=== PATIENT | male | born 1970 | race Caucasian/White ===

== ENCOUNTER → 2018-03-30 07:32 | Outpatient (CLI) | payer OTHER, SELFPAY ==
[2015-06-19 09:58] VITALS: BMI 22.9
[2018-03-30 09:26] LABS: Cholesterol 169 mg/dL (200); Glucose 96 mg/dL (74-106); High Density Lipoprotein 55 mg/dL; PSA,Total - Annual Screen 0.54 ng/mL (0.00-4.00); Triglycerides 99 mg/dL; Very Low Density Lipoprotein 20 mg/dL (5-40)
--- OUTSIDE RECORDS SUMMARY | 2018-05-25 11:51 | XMS RPT_ITS ---
:1970 Author Organization [facility] Care Team Providers Name Role Phone Jesus Alberto Stewart Attending Unavailable Jesus Alberto Stewart Referring Unavailable Jesus Alberto Stewart Primary Care Unavailable PROBLEMS PROBLEMS No Problem Records FoundPROCEDURES PROCEDURES No Procedure Records FoundRESULTS RESULTS LIPID PROFILE Collected: 03/30/2018 Status: F Source: LUIGI 7:38 AM [facility] REPOSITORY TYPE CODE TESTS RESULT OUT OF RANGE REFERENCE UNITS LAB L501.4900 200 mg/dL Normal CHOL 169 Result Comment: <200 mg/dL Desirable 200-240 mg/dL Borderline >240 mg/dL High Risk LAB L501.5000 mg/dL Normal TRIG 99 Result Comment: The drugs N-Acetylcysteine and Metamizole may falsely depress this assay. Serum Triglycerides Reference Interval Normal <150 mg/dL Borderline high 150 - 199 mg/dL High 200 - 499 mg/dL Very High > or = 500 mg/dL LAB L501.6400 mg/dL Normal HDL 55 Result Comment: The drugs N-Acetylcysteine and Metamizole may falsely depress this assay. Reference Range HDL <40 mg/dL Low HDL Cholesterol HDL >or= 60 mg/dL High HDL Cholesterol LAB L501.6500 0-130 mg/dL Normal LDL 94 LAB L501.6600 5-40 mg/dL Normal VLDL 20 Performed By: #### L500.4100, L501.0100, L501.9910 #### [facility] [address] [place], [address] GLUCOSE Collected: 03/30/2018 Status: F Source: HOLLOWAY 7:38 AM [facility] REPOSITORY TYPE CODE TESTS RESULT OUT OF RANGE REFERENCE UNITS LAB L501.0100 74-106 mg/dL Normal GLU 96 Result Comment: Please note revised GLUCOSE reference range effective 2017. Performed By: #### L500.4100, L501.0100, L501.9910 #### [facility] [address] [place], [address] PSA,TOTAL - ANNUAL Collected: 03/30/2018 Status: F Source: [place] SCREEN 7:38 AM [facility] REPOSITORY TYPE CODE TESTS RESULT OUT OF RANGE REFERENCE UNITS LAB L501.9910 0.00-4.00 ng/mL Normal PSA,TOT 0.54 SCREEN Result Comment: This test was performed using the TPSA assay method for the [employer] chemistry system. Values obtained with different assay methods cannot be used interchangably. When changing PSA assays in the course of monitoring a patient, additional sequential testing should be carried out to confirm baseline values. Performed By: #### L500.4100, L501.0100, L501.9910 #### [facility] [address] [place], [address] TESTOSTERONE, SERUM TOTAL Collected: 03/30/2018 Status: F Source: [place]AY 7:38 [facility] REPOSITORY TYPE CODE TESTS RESULT OUT OF REFERENCE UNITS RANGE LAB L509.3000 ng/dL Testosterone Normal 498.29 Result Comment: NORMAL REFERENCE RANGES MALE AGE <50 123.06 - 813.86 ng/dL MALE AGE >50 89.98 - 780.10 ng/dL FEMALE PREMENOPAUSE AGE 21 - 60 9.01 - 47.94 ng/dL FEMALE POSTMENOPAUSE AGE 45 - 89 <7.00 - 45.62 ng/dL REFERENCE RANGE AND METHODOLOGY CHANGED 04/21/2017 Performed By: #### L509.3000 #### [facility] [address] [place], [address] ALLERGIES ALLERGIES DATE TYPE / CODE NAME / CODE REACTION SEVERITY SOURCE 06/19/2015 Drug No Known Unknown [facility] Allergy/4160 Allergies/F00 Hospital 10162(SNOMED [id number](RXNOR Repository CT) M) ENCOUNTERS ENCOUNTERS ADMIT/DISCHARGE ACCOUNT ADMITTING ENCOUNTER LOCATION SOURCE NUMBER CLASS 03/30/2018 [id number] Amb[place] [facility] ing:LAB Repository PAYERS PAYERS ENCOUNTER GUARANTOR PAYER SUBSCRIBER SOURCE 03/30/2018 Monica De La Torre Primary Monica Thomas [id number] Insurance:MEDICAL GentryDOB: [facility] [id number] Number: Repository [id number]: [phone] [id number] [phone] () Date:[id number] [address] [place] [id number]: 03/30/2018 Secondary NOT GIVENUNK Luigi Insurance:SELF PAY [facility] Number: Effective Repository Date:2018-03-30
== END ==
PROVIDERS: Family Provider Family Medicine; PCP Family Medicine; Referring Provider Family Medicine; Visit Provider Family Medicine
DX: Z00.00 Encounter for general adult medical examination without abnormal findings (principal); R53.83 Other fatigue; Z80.42 Family history of malignant neoplasm of prostate
CPT/HCPCS: 36415; 80061; 82947; 84153; 84403; G0103

== ENCOUNTER → 2018-05-23 06:50 | Outpatient (CLI) | payer OTHER, SELFPAY ==
[2018-05-16 14:54] VITALS: BMI 22.9
--- NOTE | 2018-05-23 06:55 | CT_ITS ---
STUDY: CT ABDOMEN WITH AND WITHOUT CONTRAST REASON FOR EXAM: Male, 47 years old. Pancreatic abnormality. RADIATION DOSAGE (If Supplied By Facility): CTDIvol = ( 9.88 ) mGy, DLP = ( 629.34 ) mGycm TECHNIQUE: Transaxial images were obtained pre and post I.V. administration of 100ml ml of Isovue 300, and with oral contrast. Sagittal and coronal images were reconstructed. Individualized dose optimization techniques were used for this CT. COMPARISON: Comparison is made with prior examination dated October 06, 2011. FINDINGS: The visualized lung bases are unremarkable. The visualized portions of the heart are within normal limits. Normal liver. Normal gallbladder and extrahepatic biliary system. Normal spleen. The previously seen well-defined hypodensity in the pancreas at the junction of the body and tail portion of the pancreas has decreased in size. It presently measures 5.5 mm. Normal bilateral adrenal glands. Normal right kidney. Normal left kidney. Normal visualized stomach. Normal small intestine. Normal colon. The appendix is visualized and appears normal. Normal abdominal aorta. Normal inferior vena cava. There is borderline retroperitoneal lymphadenopathy with enlarged nodes no greater than 10mm in the short axis diameter. Normal abdominal wall. Normal osseous structures. CT/Abdomen W/WO IV Contrast IMPRESSION: The previously seen hypodensity in the pancreas has decreased in size. It presently measures 5.5 mm. Electronically Signed: Preston Cruz MD at 13:06 EST Tel [phone], Service support ,
--- OUTSIDE RECORDS SUMMARY | 2018-07-25 14:29 | XMS RPT_ITS ---
:1970 Author Organization OHIP Care Team Providers Name Role Phone Toribio Barrientos Attending Unavailable Jesus Alberto Stewart Referring Unavailable Toribio Barrientos Attending Unavailable Toribio Barrientos Referring Unavailable Jesus Alberto Stewart Primary Care Unavailable Jesus Alberto Stewart Attending Unavailable Jesus Alberto Stewart Referring Unavailable Jesus Alberto Stewart Primary Care Unavailable PROBLEMS PROBLEMS DATE TYPE CONDITION / CODE ATTENDING STATUS SOURCE 05/16/2018 Unknown K21.9 - Toribio Barrientos Active [place] [facility] reflux disease [facility] without Repository esophagitis / K21.9(ICD-10) 05/16/2018 Unknown Z12.11 - Toribio Barrientos Active [place] Encounter for Community screening for Hospital malignant Repository neoplasm of colon / Z12.11(ICD-10) 05/16/2018 Unknown R10.9 - Toribio Barrientos Active [place] Unspecified Community abdominal pain / Hospital R10.9(ICD-10) Repository 05/16/2018 Unknown Z12.10 - Toribio Barrientos Active [place] Encounter for Community screening for Hospital malignant Repository neoplasm of intestinal tract, unspecified / Z12.10(ICD-10) 05/16/2018 Unknown K86.2 - Cyst of [place], Toribio Active [place] pancreas / Community K86.2(ICD-10) Hospital Repository PROCEDURES PROCEDURES No Procedure Records FoundRESULTS RESULTS ABDOMEN W/WO IV Observed: 05/23/2018 Status: F Source: [place] CONTRAST 6:55 AM [facility] REPOSITORY [facility] Imaging Services [address] [address] Abdomen W/WO IV Contrast MR#: [id number] Acct: [id number] Name: MONICA YORK Rep #: [id number] : 1970 M 47 From: Preston Cruz MD PCP: Jesus Alberto Stewart DO Status: REG CLI Study: Abdomen W/WO IV Contrast Date of Exam: 05/23/18 Exam# [id number] Ordering Dr: Toribio Barrientos MD STUDY: CT ABDOMEN WITH AND WITHOUT CONTRAST REASON FOR EXAM: Male, 47 years old. Pancreatic abnormality. RADIATION DOSAGE (If Supplied By Facility): CTDIvol = ( 9.88 ) mGy, DLP = ( 629.34 ) mGycm TECHNIQUE: Transaxial images were obtained pre and post I.V. administration of 100ml ml of Isovue 300, and with oral contrast. Sagittal and coronal images were reconstructed. Individualized dose optimization techniques were used for this CT. COMPARISON: Comparison is made with prior examination dated October 06, 2011. FINDINGS: The visualized lung bases are unremarkable. The visualized portions of the heart are within normal limits. Normal liver. Normal gallbladder and extrahepatic biliary system. Normal spleen. The previously seen well-defined hypodensity in the pancreas at the junction of the body and tail portion of the pancreas has decreased in size. It presently measures 5.5 mm. Normal bilateral adrenal glands. Normal right kidney. Normal left kidney. Normal visualized stomach. Normal small intestine. Normal colon. The appendix is visualized and appears normal. Normal abdominal aorta. Normal inferior vena cava. There is borderline retroperitoneal lymphadenopathy with enlarged nodes no greater than 10mm in the short axis diameter. Normal abdominal wall. Normal osseous structures. CT/Abdomen W/WO IV Contrast IMPRESSION: The previously seen hypodensity in the pancreas has decreased in size. It presently measures 5.5 mm. Electronically Signed: Preston Cruz MD at 13:06 EST Tel [phone], Service support , CC: Jesus Alberto Stewart DO; Toribio Barrientos MD Truck Mechanic: Signed SURGERY VISIT REPORT Observed: 05/16/2018 Status: F Source: [place] 3:06 PM [facility] REPOSITORY [facility] [address] [place] [address]. 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: No Is patient in pain?: Yes (Left face/ neck) Pain scale (1-10): 2 Allergies No Known Allergies Allergy (Verified 05/16/18 14:52) Medications NK 05/16/18 [History Confirmed 05/16/18] PFSH Medical History Difficulty swallowing (Acute) Fatigue (Acute) Acid reflux (Acute) Surgical History History of esophagogastroduodenoscopy (EGD) (Acute) History of left knee surgery (Acute) Hx of right inguinal hernia repair (Acute) Hx of tonsillectomy (Acute) Family History Father Cancer Prostate Social History Smoking Status: Never smoker second hand exposure: No alcohol intake: current alcohol intake frequency: holidays/special occasions only substance use type: does not use caffeine: Yes what type of physical activity do you participate in: walking frequency: 5-6 times per week HPI HPI HPI: MONICA YORK, is a 47 M who presents to the office today for surgical consultation mostly regarding multiple year history of gastroesophageal reflux disease, anterior neck throat pressure discomfort, several year history of left neck ear pain. He also has need for screening colonoscopy. He has no family history of colon cancer. He has been seen recently by Dr. Nic Oscar ear nose and throat because of left ear fullness pain left neck pain left mandible mass. Possible adenopathy left neck. He states that approximately 2 years ago he had an MRI that was not remarkable. No etiology to that can be determined. The patient is referred by his primary care physician Dr. Jesus Alberto Grossman however for the endoscopic procedures. The patient has been a lifelong tobacco chewer. He is trying to cut down. Further evidence reveals that March 2013 at [facility] he had a pancreatic cyst aspirated under ultrasound guidance. That was felt to be normal on cytology but follow-up imaging at 1 year was recommended. He did not pursue that. He otherwise feels that he is in good health. He has not had a acute change of bowel habits. He does however occasionally have severe rectal pain with spasms that almost are so severe it makes him pass out. I previously had assisted him with a consultation in the year 2013 where his symptoms sounded like an anal fissure and he was treated conservatively. For multiple years he has had reflux symptoms. It is worse when he play sports like softball and it is worse when he increases his chewing behavior. He denies previous history of Agustin's. He has intermittently utilized snqo-gcw-uuqyfjv omeprazole and more recently was prescribed prescription strength medication but felt that that caused him to have a dry mouth so he cease that medication immediately. He now takes tcns-gpa-avxrnse medicine like omeprazole as needed ROS General General: Yes fatigue; no weight change, appetite, colon cancer, breast cancer or weakness HEENT HEENT: Yes difficulty swallowing and swollen glands; no eye injury, eye surgery or hoarseness Endo Endocrine: No thyroid disease, diabetes mellitus, thyroid cancer, Hair loss, heat intolerance or cold intolerance Skin Skin: No rash or changing moles Musc Musculoskeletal: No back problems, arthritis, rheumatoid arthritis, gout or joint pain Cardio Cardiovascular: No murmur, pacemaker, heart disease, atrial fibrillation, high blood pressure, heart attack, heart stent, palpitations, shortness of breat with exertion or chest pain Psych Psychiatric: No depression, anxiety or hearing voices Resp Respiratory: No shortness of breath, No sleep apnea, No cough, No COPD, No asthma, No emphysema, No wheezing Gastro Gastrointestinal: Yes acid reflux, No abdominal pain, No nausea or vomiting, No diarrhea, No constipation, No blood in stool, No hemorrhoids, No ulcers, No gallbladder problem, No black,tarry stools Juan Hematologic: No blood thinners, No blood disorders, No bleeding, No anemia, No blood clots Neuro Neurologic: No system reviewed and no additional complaints, except as docu, No as per HPI, No abnormal walking, No abnormal hearing, No abnormal movements, No abnormal speech, No behavioral changes, No burning sensations, No confusion, No seizure-like activity, No unsteadiness, No dizziness, No localized weakness, No frequent falls, No headache(s), No lack of coordination, No loss of vision, No memory loss, No numbness, No other visual disturbances, No radiating pain, No restless legs, No sensory deficit, No fainting, No tingling, No tremor(s), No weakness, No other Exam Const General: cooperative, healthy appearing, no acute distress Nutritional Appearance: average body habitus Orientation: alert, awake, oriented x3 Neck Neck mass: No Thyroid: thyroid normal Carotids: normal carotid upstroke Lymphatic: no lymphadenopathy noted Other: The left parotid and cervical neck is unremarkable for adenopathy. Left mid neck has slight tenderness but I cannot correlate that with a mass. I do not detect any supraclavicular adenopathy. Chest Chest palpation AND inspection: normal inspection of the chest Resp Effort AND Inspection: normal respiratory effort Auscultation: clear to auscultation bilaterally Cardio Rate: regular rate Rhythm: regular rhythm Heart Sounds: no murmurs GI Palpation: soft, no hepatosplenomegaly Auscultation: normal bowel sounds Skin General: no rashes or lesions noted Neuro General: alert, oriented x3 Extrem General: no calf tenderness bilaterally Psych Affect: normal affect Assessment AND Plan Problems 1. Gastroesophageal reflux disease, esophagitis presence not specified K21.9 2. Screening for intestinal cancer Z12.10 3. Pancreatic cyst K86.2 Plan 47-year-old gentleman. Next week he will be 48. He previously describes endoscopic ultrasound aspiration of the pancreatic cyst in 2013 for which he was supposed to have a follow-up CTA or MRI at 1 year. We will assist him with pursuing a CT scan of the abdomen with close inspection of the pancreas looking for presence of cyst. He will be age 48 next week. I recommend to him a screening colonoscopy with possible biopsy or polypectomy is indicated. He is aware of the technique, benefits, risks, alternatives. We will schedule and proceed at his discretion. He has symptoms very much consistent with gastroesophageal reflux disease. He is a chronic tobacco chewer. The left neck pain is indeterminate and I have cautioned him that I likely do not have an answer to that. I am offering him a esophagogastroduodenoscopy with possible biopsy or polypectomy is indicated. Regarding his left ear neck issues he might consider referral to a tertiary center if his symptoms persist. I very much appreciate the kind opportunity of assisting with his surgical care CC: Dr. Jesus Alberto Barrientos M.D., F.A.C.S. Orders Orders: Coding Level of Care Code Detailed, Low Diagnoses Gastroesophageal reflux disease, esophagitis presence not specified K21.9 Esophagitis presence: esophagitis presence not specified Screening for intestinal cancer Z12.10 Pancreatic cyst K86.2 05/16/18 1506 <Electronically signed by Toribio Barrientos MD> Date Toribio Barrientos MD Cosigner Signature: Date (if applicable) CC: Jesus Alberto Stewart DO LIPID PROFILE Collected: 03/30/2018 Status: F Source: [facility] 7:38 AM [facility] REPOSITORY TYPE CODE TESTS RESULT OUT [...] Performed By: #### L500.4100, L501.0100, L501.9910 #### [facility] [address] [place], [address] GLUCOSE Collected: 03/30/2018 Status: F Source: [place] 7:38 AM [facility] REPOSITORY TYPE CODE TESTS RESULT OUT OF RANGE REFERENCE UNITS LAB L501.0100 74-106 mg/dL Normal GLU 96 Result Comment: Please note revised GLUCOSE reference range effective 2017. Performed By: #### L500.4100, L501.0100, L501.9910 #### [facility] [address] [place], [address] PSA,TOTAL - ANNUAL Collected: 03/30/2018 Status: F Source: [facility] 7:38 AM [facility] REPOSITORY TYPE CODE TESTS RESULT OUT OF RANGE REFERENCE UNITS LAB L501.9910 0.00-4.00 ng/mL Normal PSA,TOT 0.54 SCREEN Result Comment: This test was performed using the TPSA assay method for the [employer]Suite chemistry system. Values obtained with different assay methods cannot be used interchangably. When changing PSA assays in the course of monitoring a patient, additional sequential testing should be carried out to confirm baseline values. Performed By: #### L500.4100, L501.0100, L501.9910 #### [facility] [address] [place], [place], [address] TESTOSTERONE, SERUM TOTAL Collected: 03/30/2018 Status: F Source: [place] 7:38 AM [facility] REPOSITORY TYPE CODE TESTS RESULT OUT [...] CHANGED 04/21/2017 Performed By: #### L509.3000 #### [facility] [address] [place], [address] ALLERGIES ALLERGIES DATE TYPE / CODE NAME / CODE REACTION SEVERITY SOURCE 05/16/2018 Drug No Known Unknown [facility] Allergy/4160 Allergies/F00 Hospital 40536(SNOMED [id number](RXNOR Repository CT) M) ENCOUNTERS ENCOUNTERS ADMIT/DISCHARGE ACCOUNT ADMITTING ENCOUNTER LOCATION SOURCE NUMBER CLASS 05/23/2018 [id number] Amb[place] [facility] ing:CT Repository 05/16/2018/ [id number] Ambulatory BMSBuilding:B [place] [facility] [place] 03/30/2018 [id number] Ambulatory [place] [facility] ing:LAB Repository PAYERS PAYERS ENCOUNTER GUARANTOR PAYER SUBSCRIBER SOURCE 05/23/2018 MONICA De [place] Torre Primary MONICA De La Torre [place] [id number] Insurance:MEDICAL GENTRYDOB: [facility] [id number] Number: Repository [id number]: [phone] [id number] [phone] (HP) Date:3651-11-22HH [address] [place] [id number]: 05/23/2018 Secondary NOT GIVENUNK [place] Insurance:SELF PAY [facility] Number: Effective Repository Date:2018-05-16 05/16/2018 MONICA De La Torre Primary MONICA A [place] [id number] Insurance:MEDICAL GENTRYDOB: [facility] [id number] Number: Repository [id number]: 330 [id number] [phone] () Date:9224-33-18CO [address] [address]HL: 05/16/2018 Secondary NOT GIVENUNK [place] Insurance:SELF PAY [facility] Number: Effective Repository Date:2018-05-13 03/30/2018 Monica A Primary Monica A [place] [id number] Insurance:MEDICAL GentryDOB: [facility] [id number] Number: Repository [id number]: [phone]) [id number] [phone] () Date:8928-00-[address] [address]EX: 03/30/2018 Secondary NOT GIVENUNK [place] Insurance:SELF PAY [facility] Number: Effective Repository Date:2018-03-30
== END ==
PROVIDERS: Family Provider Family Medicine; PCP Family Medicine; Referring Provider Surgery; Visit Provider Surgery
DX: R10.9 Unspecified abdominal pain (principal)
CPT/HCPCS: 74170; Q9967

== ENCOUNTER 2018-06-06 05:27 | Day surgery (SDC) | payer OTHER, SELFPAY ==
[2018-05-16 14:54] VITALS: BMI 22.9
[2018-06-06 05:51] VITALS: BP 115/83; PULSE 66; RESP 16; TEMP 37.1; O2SAT 99; BMI 25.3
--- NOTE | 2018-06-06 06:30 | EGD_PTH ---
PATIENT: MONICA YORK LOC: EN U#:[id number] AGE/SX: 48/M ROOM: RE06/06/[address]: Dr. Toribio Barrientos MD : 1970 BED: DIS: 06/06/2018 SPEC #: [id number] RECD: 06/06/18 09:22 STATUS: PACHECO NEPTALI #: [id number] DEMARIO: 06/06/18 06:[address]: Toribio Barrientos DEPT: SURGICAL PATHOLOGY RECD BY: Solomon Browning ENTERED: 06/06/18 13:11 SP TYPE: EGD BIOPSY OTHR DR: Dr. Jesus Alberto Stewart DO Tissues: A - Gastric mucous membrane B - Gastric mucous membrane C - Esophageal mucous membrane Procedures: Special Stain Group II Surgery Specimen Level IV Alcian Blue/PAS (control) HEADER OPERATION: Colonoscopy, EGD ([facility]) PRE-OP DIAGNOSIS: GERD, screening TISSUE SUBMITTED: A - Antral biopsy for H. pylori and pathology, B - GE junction biopsies, C - Proximal esophageal biopsies MICROSCOPIC DIAGNOSIS A. Gastric antrum, biopsy: Mild chronic gastritis. B. Gastroesophageal junction, biopsy: Gastroesophageal junctional mucosa with chronic inflammation. No evidence of intestinal metaplasia. See comment.. C. Proximal esophagus, biopsy: Consistent with changes of reflux. AM:martinez 06/07/18 COMMENT B. Alcian blue/PAS stain with matched control supports the above diagnosis. MICROSCOPIC DESCRIPTION Slides are reviewed. GROSS DESCRIPTION A - Received in fixative is one container labeled with the patient's name and designated gastric antrum biopsy. The specimen consists of one irregular fragment of light lopez soft tissue that measures 0.5 x 0.2 x 0.1 cm. The specimen is totally submitted in one cassette. B - Received in fixative is one container labeled with the patient's name and designated GE junction. The specimen consists of multiple irregular fragments of light lopez soft tissue that in aggregate measure 1.0 x 0.6 x 0.1 cm. The specimen is totally submitted in one cassette. C - Received in fixative is one container labeled with the patient's name and designated proximal esophageal biopsy. The specimen consists of multiple irregular fragments of light lopez soft tissue that in aggregate measure 1.2 x 0.6 x 0.1 cm. The specimen is totally submitted in one cassette. / AM:martinez 06/06/18 TC:3 CPT: 14794 x3, 79804
--- NOTE | 2018-06-06 06:30 | IMM_PTH ---
PATIENT: MONICA YORK LOC: EN U#:[id number] AGE/SX: 48/M ROOM: RE06/06/[address]: Dr. Toribio Barrientos MD : 1970 BED: DIS: 06/06/2018 SPEC #: [id number] RECD: 06/06/18 10:57 STATUS: PACHECO REHiram #: [id number] DEMARIO: 06/06/18 06:[address]: Toribio Barrientos DEPT: IMMUNOHISTOCHEMISTRY RECD BY: Gladys Robles ENTERED: 06/06/18 10:57 SP TYPE: IMMUNO OTHR DR: Dr. Jesus Alberto Stewart DO Tissues: A - Stomach, NOS Procedures: H Pylori (initial) PHYSICIAN & INSTITUTION [place] [address] SPECIMEN INFORMATION: Tissue Source: Colonoscopy, EGD Clinical Info: GERD, screening Specimen Number: [id number] CPT code: 81393 METHODOLOGY: Deparaffinized sections of prefer/formalin-fixed tissue or PAP/DQ stained slides are incubated with monoclonal/polyclonal antibodies/oligonucleotide probes. Localization is made via biotin free immunoperoxidase method. Appropriate controls are performed and reacted as expected. Results on target cell population are indicated in the following table: RESULTS: ANTIBODY / CLONE RESULT Block A H Pylori (polyclonal) negative These tests were developed and their performance characteristics determined by [facility]. They may not have been cleared or approved by the U.S. Food and Drug Administration. The FDA has determined that such clearance or approval is not necessary. INTERPRETATION: A. Antral biopsy: Negative for Helicobacter pylori organisms. AM:martinez 06/07/18
[2018-06-06 07:07] VITALS: BP 105/57; BP 115/83; PULSE 57; RESP 16; TEMP 35.9; O2SAT 98
--- NOTE | 2018-06-06 07:07 | OP.ENDO_ITS ---
Patient Name: Jonah Yousif Procedure Date: 06/06/2018 6:02 AM Date of : 1970 Age: 48 Procedure: Upper GI endoscopy Indications: Suspected gastro-esophageal reflux disease Providers: Toribio Barrientos MD Referring MD: Toribio Barrientos MD Medicines: See the Anesthesia note for documentation of the administered medications Complications: No immediate complications. Procedure: Pre-Anesthesia Assessment: - Prior to the procedure, a History and Physical was performed, and patient medications and allergies were reviewed. The patient's tolerance of previous anesthesia was also reviewed. The risks and benefits of the procedure and the sedation options and risks were discussed with the patient. All questions were answered, and informed consent was obtained. Prior Anticoagulants: The patient has taken no previous anticoagulant or antiplatelet agents. ASA Grade Assessment: II - A patient with mild systemic disease. After reviewing the risks and benefits, the patient was deemed in satisfactory condition to undergo the procedure. After obtaining informed consent, the endoscope was passed under direct vision. Throughout the procedure, the patient's blood pressure, pulse, and oxygen saturations were monitored continuously. The gastroscope was introduced through the mouth, and advanced to the second part of duodenum. The upper GI endoscopy was accomplished without difficulty. The patient tolerated the procedure well. Scope In: 6:31:20 AM Scope Out: 6:42:46 AM Total Procedure Duration Time 0 hours 11 minutes 26 seconds Findings: Esophagitis was found. Biopsies were taken with a cold forceps for histology. A 1 cm hiatal hernia was present. Biopsies were taken with a cold forceps for histology. The entire examined stomach was normal. Biopsies were taken with a cold forceps for histology. The examined duodenum was normal. Impression: - Reflux esophagitis. Rule out Agustin's esophagus. Large area in the very proximal esophagus. See photos. Multiple biopsies. - 1 cm hiatal hernia. Biopsied. Findings suggest reflux esophagitis - Normal stomach. Biopsied. - Normal examined duodenum. Recommendation: - Discharge patient to home. - Resume previous diet. - Use Prilosec (omeprazole) 40 mg PO daily. - Continue present medications. - Return to my office in 1 week. Procedure Code(s): --- Professional --- 79856, Esophagogastroduodenoscopy, flexible, transoral; with biopsy, single or multiple Diagnosis Code(s): --- Professional --- K21.0, Gastro-esophageal reflux disease with esophagitis K44.9, Diaphragmatic hernia without obstruction or gangrene CPT copyright 2017 [employer]. All rights reserved. The codes documented in this report are preliminary and upon real estate lawyer review may be revised to meet current compliance requirements. Toribio Barrientos MD 06/06/2018 7:07:02 AM This report has been signed electronically. Number of Addenda: 0 Note Initiated On: 06/06/2018 6:02 AM
--- NOTE | 2018-06-06 07:09 | OP.ENDO_ITS ---
Patient Name: Jonah Yousif Procedure Date: 06/06/2018 6:43 AM Date of : 1970 Age: 48 Procedure: Colonoscopy Indications: Screening for colorectal malignant neoplasm Providers: Toribio Barrientos MD Referring MD: Toribio Barrientos MD Medicines: See the Anesthesia note for documentation of the administered medications Patient Profile: Last Colonoscopy: none. The patient's first colonoscopy is today. Complications: No immediate complications. Procedure: Pre-Anesthesia Assessment: - Prior to the procedure, a History and Physical was performed, and patient medications and allergies were reviewed. The patient's tolerance of previous anesthesia was also reviewed. The risks and benefits of the procedure and the sedation options and risks were discussed with the patient. All questions were answered, and informed consent was obtained. Prior Anticoagulants: The patient has taken no previous anticoagulant or antiplatelet agents. ASA Grade Assessment: II - A patient with mild systemic disease. After reviewing the risks and benefits, the patient was deemed in satisfactory condition to undergo the procedure. After I obtained informed consent, the scope was passed under direct vision. Throughout the procedure, the patient's blood pressure, pulse, and oxygen saturations were monitored continuously. The colonoscope was introduced through the anus and advanced to the cecum, identified by appendiceal orifice and ileocecal valve. The colonoscopy was performed without difficulty. The patient tolerated the procedure well. The quality of the bowel preparation was good. The ileocecal valve and the appendiceal orifice were photographed. Scope In: 6:45:08 AM Scope Withdrawal Time 0 hours 9 minutes 21 seconds Scope Out: 7:00:38 AM Total Procedure Duration Time 0 hours 15 minutes 30 seconds Findings: The digital rectal exam findings include non-thrombosed external hemorrhoids, non-thrombosed internal hemorrhoids and internal hemorrhoids that prolapse with straining, but spontaneously regress to the resting position (Grade II). Pertinent negatives include normal prostate (size, shape, and consistency). The colon (entire examined portion) appeared normal. Impression: - Non-thrombosed external hemorrhoids, non-thrombosed internal hemorrhoids and internal hemorrhoids that prolapse with straining, but spontaneously regress to the resting position (Grade II) found on digital rectal exam. - The entire examined colon is normal. - No specimens collected. Recommendation: - Discharge patient to home. - Resume previous diet. - Continue present medications. - Repeat colonoscopy in 10 years for screening purposes. Procedure Code(s): --- Professional --- 24598, Colonoscopy, flexible; diagnostic, including collection of specimen(s) by brushing or washing, when performed (separate procedure) Diagnosis Code(s): --- Professional --- Z12.11, Encounter for screening for malignant neoplasm of colon K64.1, Second degree hemorrhoids K64.4, Residual hemorrhoidal skin tags CPT copyright 2017 [employer]. All rights reserved. The codes documented in this report are preliminary and upon steam box hand review may be revised to meet current compliance requirements. Toribio Barrientos MD 06/06/2018 7:09:01 AM This report has been signed electronically. Number of Addenda: 0 Note Initiated On: 06/06/2018 6:43 AM
[2018-06-06 07:10] VITALS: BP 101/61; BP 115/83; PULSE 55; RESP 16; O2SAT 98
[2018-06-06 07:15] VITALS: BP 115/83; BP 116/66; PULSE 53; RESP 16; O2SAT 100
[2018-06-06 07:20] VITALS: BP 107/65; BP 115/83; PULSE 54; RESP 16; TEMP 36.1; O2SAT 100
[2018-06-06 07:28] VITALS: BP 115/83
== END 2018-06-06 07:48 | disposition home or self-care (01) ==
LOC: EN 05:27 → AC 05:28
PROVIDERS: Family Provider Family Medicine; PCP Family Medicine; Referring Provider Surgery; Visit Provider Surgery
PROC: 0DJD8ZZ Inspection of Lower Intestinal Tract, Via Natural or Artificial Opening Endoscopic (ICD-10-PCS; CPT 45378; principal; 2018-06-06 06:25)
DX: Z12.11 Encounter for screening for malignant neoplasm of colon (principal); K29.50 Unspecified chronic gastritis without bleeding; K21.0 Gastro-esophageal reflux disease with esophagitis; K44.9 Diaphragmatic hernia without obstruction or gangrene; K64.1 Second degree hemorrhoids; K64.4 Residual hemorrhoidal skin tags; K86.2 Cyst of pancreas; F17.220 Nicotine dependence, chewing tobacco, uncomplicated; Z86.718 Personal history of other venous thrombosis and embolism
CPT/HCPCS: 43239; 45378; 88305; 88313; 88342; J7120

== ENCOUNTER → 2018-06-10 08:07 | Outpatient (CLI) | payer OTHER, SELFPAY ==
[2018-05-16 14:54] VITALS: BMI 22.9
[2018-06-06 05:51] VITALS: BMI 25.3
--- NOTE | 2018-06-10 08:11 | CT_ITS ---
STUDY: CT SOFT TISSUE NECK WITH CONTRAST REASON FOR EXAM: Male, 48 years old. Swelling of the left side of the neck for 3 months RADIATION DOSAGE (If Supplied By Facility): CTDIvol = ( 20.85 ) mGy, DLP = ( 656.15 ) mGycm TECHNIQUE: The patient was scanned in a multi-detector CT scanner. High resolution transaxial imaging was performed following intravenous administration of 75CC ml of Isovue 300 contrast material. Sagittal and coronal images were reconstructed. Individualized dose optimization techniques were used for this CT. COMPARISON: 01/21/2015 FINDINGS: Normal bilateral parotid glands. Normal bilateral sustainability director spaces. Normal bilateral parapharyngeal spaces. Normal bilateral carotid spaces. Normal bilateral sublingual and submandibular glands and spaces. Normal visualized nasopharynx. Normal retropharyngeal space. Normal perivertebral space. Normal visualized bilateral faucial tonsils. The visualized tongue, tongue base and oropharynx are normal. There are minimally enlarged lymph nodes of the neck, with preservation of normal torres architecture, consistent with a reactive lymph hyperplasia. No dominant torres mass. There is no demonstrated solid or cystic mass lesion. There is no abnormal contrast enhancement. Normal epiglottis, bilateral vallecula and hypopharynx. The pre-epiglottic and paraglottic adipose spaces are normal. Normal visualized bilateral piriform sinuses, aryepiglottic folds, vocal cords, and arytenoid-cricoid articulations. Normal subglottic trachea. Normal bilateral lobes of the thyroid gland. Normal visualized pulmonary apices. There is mucosal inflammatory disease of the left more than right maxillary sinus consistent with chronic sinusitis. Normal visualized cervical spine. CT/Soft Tissue Neck WITH Contrast IMPRESSION: 1. No solid or cystic mass. 2. Similar appearing reactive lymph nodes of the neck (since 2014). 3. Mild maxillary sinusitis but no air-fluid levels (chronic). Electronically Signed: Shaka Vela MD at 22:31 EST , Service support ,
== END ==
PROVIDERS: Family Provider Family Medicine; PCP Family Medicine; Referring Provider Otolaryngology; Visit Provider Otolaryngology
DX: R22.1 Localized swelling, mass and lump, neck (principal)
CPT/HCPCS: 70491; Q9967

== ENCOUNTER → 2019-03-29 11:55 | Outpatient (CLI) | payer OTHER, SELFPAY ==
[2018-06-13 12:36] VITALS: BMI 25.3
--- NOTE | 2019-03-29 12:02 | RAD_ITS ---
STUDY: X-RAY - CERVICAL SPINE REASON FOR EXAM: Male, 48 years old. TECHNIQUE: view(s) of the cervical spine were obtained. COMPARISON: None FINDINGS: Normal anterior atlantoaxial articulation. Normal odontoid process. Straightened cervical lordosis. Normal vertebral bodies and endplates. Normal disc space heights. Normal visualized intervertebral neuroforamina. The soft tissue structures are unremarkable. RAD/Cerv Spine 4 or 5 Views IMPRESSION: Normal x-ray examination of the visualized cervical spine. Electronically Signed: Ольга Crooks, at 15:40 EST Tel , Service support ,
== END ==
PROVIDERS: Family Provider Family Medicine; PCP Family Medicine; Referring Provider Anesthesiology Pain Medicine; Visit Provider Anesthesiology Pain Medicine
DX: M54.2 Cervicalgia (principal)
CPT/HCPCS: 72050

== ENCOUNTER 2019-06-23 08:01 | Day surgery (SDC) | payer OTHER, SELFPAY ==
[2018-06-13 12:36] VITALS: BMI 25.3
--- NOTE | 2019-06-23 08:36 | EKG12_ITS ---
Test Reason : PREOP Blood Pressure : / mmHG Vent. Rate : 049 BPM Atrial Rate : 049 BPM P-R Int : 158 ms QRS Dur : 086 ms QT Int : 468 ms P-R-T Axes : 048 -15 -24 degrees QTc Int : 422 ms Sinus bradycardia Otherwise normal ECG No previous ECGs available Confirmed by CHRISTINA CERNA, CASEY ([id number]), web editor RUDDY CANTU ([id number]) on 06/27/2019 1:30:25 PM Referred By: Nomi Flores Confirmed By:ERLINDA VASQUEZ MD
[2019-06-23 08:48] VITALS: BP 145/79; PULSE 54; RESP 18; TEMP 36.8; O2SAT 98; BMI 28.2
[2019-06-23 08:54] LABS: Hematocrit 39.3 % (40-54); Hemoglobin 12.9 g/dL (13.0-16.5); Mean Corp Hgb Conc 32.8 g/dL (32-36); Mean Corpuscular Hgb 27.7 pg (27.0-32.0); Mean Corpuscular Volume 84.5 fL (80-94); Mean Platelet Vol. 10.5 fl (6.2-12.0); Platelet Count 199 K/mm3 (150-450); RBC Distribution Width CV 12.3 % (11.6-14.6); RBC Distribution Width SD 37.6 fl (35.1-43.9); Red Blood Count 4.65 M/mm3 (4.6-6.2); White Blood Count 4.3 K/mm3 (4.4-11.0)
[2019-06-23] MEDS: Lactated Ringers 1,000 ML 100 ML IV (09:03)
--- NOTE | 2019-06-23 09:40 | SEP_PTH ---
PATIENT: MONICA YORK [place] [facility] [place] U[place][id number] AGE/SX: 49/M ROOM: RE06/23/[address]: Dr. Nomi Flores MD : 1970 BED: DIS: 06/23/2019 SPEC #: [id number] RECD: 06/23/19 13:11 STATUS: PACHECO REHiram #: [id number] DEMARIO: 06/23/19 09:[address]: Nomi Flores DEPT: SURGICAL PATHOLOGY RECD BY: Solomon Browning ENTERED: 06/23/19 13:19 SP TYPE: SEPTUM OTHR DR: No Primary Care Phys Tissues: A - Ethmoid sinus, NOS B - Ethmoid sinus, NOS C - Nasal septum, NOS Procedures: Decalcification bone/plaque Surgery Specimen Level III HEADER OPERATION: Septoplasty PRE-OP DIAGNOSIS: Deviated nasal septum; chronic maxillary sinusitis TISSUE SUBMITTED: A - Right sinus contents, B - Left sinus contents, C - Septum contents MICROSCOPIC DIAGNOSIS A. Right sinus contents, biopsy: Consistent with chronic sinusitis. Minute fragments of bone with no pathologic change. B. Left sinus contents, biopsy: Consistent with chronic sinusitis. Minute fragments of bone with no pathologic change. C. Nasal septum, septoplasty: Fragments of hyaline cartilage and bone with reparative and reactive change (clinically deviated septum). AM:martinez 06/28/19 MICROSCOPIC DESCRIPTION Slides are reviewed. GROSS DESCRIPTION A - Received in fixative is one container labeled with the patient's name and designated right sinus contents. The specimen consists of multiple fragments of hemorrhagic soft tissue that in aggregate measure 4 x 3 x 1 cm. Resource Technician tissue is submitted in two cassettes. B - Received in fixative is one container labeled with the patient's name and designated left sinus contents. The specimen consists of multiple fragments of lopez-pink soft tissue that in aggregate measure 2 x 0.5 x 0.1 cm. The entire specimen is submitted in one cassette. C - Received in fixative is one container labeled with the patient's name and designated septum contents. The specimen consists of multiple fragments of cartilage and bone that in aggregate measure 4 x 4 x 0.5 cm. Resource Technician tissue is submitted in one cassette after decalcification. / SJ:martinez 06/23/19 TC:3 CPT: 85117 x3, 61494
[2019-06-23] MEDS: Oxymetazoline 0.05% 1 SPRAY SPRAY.BTL 15 SPRAY (11:00)
[2019-06-23] MEDS: Lidocaine 4% 50 ML Bottle (11:00)
[2019-06-23] MEDS: Bacitracin 500 UNITS/GM PACKET (11:00)
--- NOTE | 2019-06-23 11:03 | OP.PCM_ITS ---
Problem List (1) Deviated nasal septum Status: Acute (2) Chronic maxillary sinusitis Status: Chronic Report of Operation Date of Procedure: 06/23/19 Pre-Operative Diagnosis: Chronic bilateral maxillary sinusitis, deviated nasal septum Post-Operative Diagnosis: Same Surgery/Procedure Performed:: Septoplasty, bilateral endoscopic maxillary antrostomies Description of Surgical Findings:: Acosta is a 49-year-old male with complaints of chronic sinusitis. On examination he has significant deviation of the nasal septum CT scan confirmed bilateral m axillary sinusitis. Given the failure to resolve with appropriate medical therapy surgical treatment was offered and he was eager to proceed. The risks, alternatives, potential complications, and benefits were discussed at length and any questions answered to the patient and/or caregiver's satisfaction. Witnessed informed consent was obtained in the office, and the patient and/or caregiver was agreeable to proceed. Procedure went as follows: The patient was identified in the preoperative holding and brought to the operating room, was placed under general anesthesia and intubated. When appropriate anesthesia was obtained, pledgets soaked in a 50-50 mixture of oxymetazoline and 4% topical lidocaine were placed to decongest the nasal mucosa. The nasal septum was then injected beginning on the left side with 1% lidocaine with 100,000 epinephrine for a total of 5 mL. The pledgets were then removed and the left nasal cavity examined. There was noted to be significant nasal septal deviation to the [right]. Using a 15 blade scalpel, a hemitransfixion incision was then made on the left side and using the [place] elevator a subperichondrial/periosteal flap was elevated. The septum was then transected at the bony cartilaginous junction and a similar flap raised on the contralateral side. Using a Roshni forceps, the septum was then sharply transected superiorly and the deviated portions removed with a Gricelda forceps. Any inferior bony spur was then removed with a chisel allowing for midline placement of the nasal septum. The hemitransfixion incision was then c losed with interrupted 4-0 chromic gut suture followed by a 4-0 plain quilting suture to reapproximate the mucosal flaps. Attention was then turned to the maxillary antrostomies. The insertion of the middle turbinate and uncinate process was then injected with 1% lidocaine with 100,000 epinephrine for a total of 2 mL, and a similar injection was then carried on the contralateral side. Upon returning to the left side, the middle turbinate was medialized with a Cruz elevator. This allowed examination of the maxillary sinus ostia which was then probed with a double ball seeker. There is noted to be an accessory ostia inferiorly and care was used to joined with with the existing natural ostia. The uncinate process was then outfractured with a J curette and transected with a backbiting forceps. This was then removed with the microdebrider creating a wide maxillary antrostomy. Similar procedure and findings were then carried out. Thorpe splints coated with Bacitracin ointment were then applied to each nasal cavity and secured at the columella with a single 3-0 Prolene suture. An NG tube was then placed to decompress the stomach and the patient returned to anesthesia, revived and extubated having tolerated the procedure well. Type of Anesthesia:: General Anesthesiologist: Nomi Baltazar Special Medications: none Specimen's removed: nasal septal and sinus contents Drains: none Estimated Blood Loss (mL): 10 mL Fluids Replaced: 400 mL Grafts/Implants Used: Thorpe splints - Complications none - Admit VTE Documentation VTE Present on Admission: No VTE Mechan Device Prophylaxis: SCD's VTE Pharm Prophylaxis ordered?: No
--- NOTE | 2019-06-23 11:08 | DCINST_ITS ---
- Discharge Diagnoses Current Active Problems: Current Active and Chronic Problems (Last Reviewed 06/13/18 @ 12:36 by Raisa Morales) Deviated nasal septum (Acute) Chronic maxillary sinusitis (Chronic) You will use the following diet at home:: Regular Discharge Activity: Return to Normal Activity, May not drive while taking narcotic pain medications. Call your doctor if your incision/area has: Sudden Increased Bleeding Call your doctor if you observe: Fever of 101 or Higher, Uncontrolled pain Allergies/Adverse Reactions: Allergies No Known Allergies Allergy (Verified 06/23/19 08:37) Medications to take at Discharge NK 06/22/19 Primary Care Physician: Care Physician,No Primary [Primary Care Provider] - Test Results: Test results from this visit will be discussed in further detail at your follow- up appointment, if applicable. Please Follow Up With: Nomi Flores MD When: 5 days
[2019-06-23 11:10] VITALS: BP 145/79; BP 150/92; PULSE 66; RESP 18; TEMP 36.6; O2SAT 95
[2019-06-23 11:15] VITALS: BP 145/79; BP 152/93; PULSE 68; RESP 16; O2SAT 96
[2019-06-23 11:30] VITALS: BP 143/90; BP 145/79; PULSE 58; RESP 16; O2SAT 99
[2019-06-23 11:43] VITALS: BP 143/83; BP 145/79; PULSE 53; RESP 16; TEMP 36.6; O2SAT 99
[2019-06-23 12:31] VITALS: BP 136/70; BP 145/79; PULSE 49; RESP 16; TEMP 36.5; O2SAT 97
== END 2019-06-23 12:42 | disposition home or self-care (01) ==
LOC: SDC 08:01 → AC 08:05
PROVIDERS: Anesthesiology; Referring Provider Otolaryngology; Visit Provider Otolaryngology
PROC: (CPT 30520; principal; 2019-06-23 09:10)
PROC: (CPT 30520; 2019-06-23 09:10)
DX: J34.2 Deviated nasal septum (principal); J32.0 Chronic maxillary sinusitis; K21.9 Gastro-esophageal reflux disease without esophagitis; Z86.718 Personal history of other venous thrombosis and embolism; Z87.891 Personal history of nicotine dependence
CPT/HCPCS: 00160; 30520; 31256; 36415; 85027; 88304; 88305; 88311; 93005; J7120; J2405

== ENCOUNTER → 2019-09-01 | Outpatient (CLI) | payer OTHER, SELFPAY ==
[2019-09-01 08:51] LABS: Cholesterol 171 mg/dL (200); Glucose 101 mg/dL (74-106); High Density Lipoprotein 46 mg/dL; PSA,Total - Annual Screen 0.67 ng/mL (0.00-4.00); Triglycerides 156 mg/dL; Very Low Density Lipoprotein 31 mg/dL (5-40)
== END | disposition home or self-care (01) ==
LOC: LAB.FUTURE 07:56 → LAB 07:59
PROVIDERS: PCP Nurse Practitioner Family; Referring Provider Nurse Practitioner Family; Visit Provider Nurse Practitioner Family
DX: Z00.00 Encounter for general adult medical examination without abnormal findings (principal); Z13.220 Encounter for screening for lipoid disorders; Z13.1 Encounter for screening for diabetes mellitus; Z12.5 Encounter for screening for malignant neoplasm of prostate
CPT/HCPCS: 36415; 80061; 82947; 84153; G0103

== ENCOUNTER → 2020-01-10 | Outpatient (CLI) | payer OTHER, SELFPAY ==
--- NOTE | 2020-01-10 09:50 | RAD_ITS ---
STUDY: X-RAY - LUMBAR SPINE REASON FOR EXAM: Male, 49 years old. Pain, no injury TECHNIQUE: 3 view(s) of the lumbar spine were obtained. COMPARISON: None FINDINGS: Normal lumbar lordosis. There is no substantial scoliosis. There is a normal alignment of the vertebrae. Anterior spondylosis at the L2-L3 level. There is multi-level degenerative disc disease with multi-level disc space narrowing. The soft tissue structures are unremarkable. RAD/Lumbar Spine 2 or 3 Views IMPRESSION: Degenerative changes of the spine, as detailed above. Electronically Signed: Preston Cruz, at 15:40 EDT , Service support ,
--- NOTE | 2020-01-10 09:50 | RAD_ITS ---
STUDY: X-RAY - THORACIC SPINE REASON FOR EXAM: Male, 49 years old. Pain, no injury TECHNIQUE: AP and lateral view(s) of the thoracic spine were obtained. COMPARISON: None. FINDINGS: Normal kyphosis of the thoracic spine. There is no substantial scoliosis. There is multilevel endplate spondylosis of the thoracic vertebrae. There is multilevel disc space narrowing of the thoracic spine. The soft tissue structures are unremarkable. RAD/Thoracic Spine 2 Views IMPRESSION: Multilevel disc space narrowing and disc degeneration. Electronically Signed: Preston Cruz, at 15:27 EDT , Service support ,
[2020-01-10 10:30] LABS: Erythrocyte Sedimentation Rate 3 mm/hr (0-20)
[2020-01-10 10:53] LABS: Vitamin B12 415 pg/mL (211-911); Vitamin D,25 Hydroxy 45.4 ng/mL
[2020-01-10 10:57] LABS: CRP < 2.90 mg/L (0.0-3.0); Rheumatoid Factor < 10.0 IU/mL (<15); Uric Acid 5.3 mg/dL (3.5-7.2)
[2020-01-11 22:03] LABS: ANTINUCLEAR ANTIBODIES DIRECT Negative (Negative)
== END | disposition home or self-care (01) ==
LOC: LAB 09:28
PROVIDERS: PCP Nurse Practitioner Family; Visit Provider Nurse Practitioner Family
DX: M25.50 Pain in unspecified joint (principal); M54.5 Low back pain; M54.6 Pain in thoracic spine
CPT/HCPCS: 36415; 72070; 72100; 82306; 82607; 84550; 85652; 86038; 86140; 86431

== ENCOUNTER 2021-08-15 07:11 | Outpatient (CLI) | payer OTHER, SELFPAY ==
[2021-08-15 07:46] LABS: Erythrocyte Sedimentation Rate < 1 mm/hr (0-20)
[2021-08-15 07:48] LABS: Hemoglobin 13.4 g/dL (13.0-16.5); Mean Corp Hgb Conc 32.7 g/dL (32-36); Mean Corpuscular Volume 85.6 fL (80-94); Mean Platelet Vol. 10.4 fl (6.2-12.0); Platelet Count 212 K/mm3 (150-450); RBC Distribution Width CV 12.2 % (11.6-14.6); RBC Distribution Width SD 38.1 fl (35.1-43.9); Red Blood Count 4.79 M/mm3 (4.6-6.2); White Blood Count 4.4 K/mm3 (4.4-11.0)
[2021-08-15 08:04] LABS: ALB/GLOB Ratio 1.2 RATIO (0.9-2.4); AST(SGOT) 12 U/L (15-37); Alanine Aminotransfer ALT/SGPT 23 U/L (16-61); Albumin, Serum 3.8 g/dL (3.2-5.0); Alkaline Phosphatase 72 U/L (45-117); Anion Gap 2 (5-15); BUN 18 mg/dL (7-18); BUN/Creat Ratio 15.3 RATIO (10-20); CRP < 2.90 mg/L (0.0-3.0); Calcium,Total 8.9 mg/dL (8.5-10.1); Chloride 110 mmol/L (98-107); Creatinine, Serum 1.18 mg/dL (0.70-1.30); EST Glomerular Filtration Rate 69 mL/min (>60); Est Glom Filt Rate - Afr Amer 83 mL/min (>60); Globulin 3.1 g/dL (2.2-4.2); Glucose 106 mg/dL (74-106); Potassium 4.1 mmol/L (3.5-5.1); Protein, Total 6.9 g/dL (6.4-8.2); Rheumatoid Factor < 10.0 IU/mL (<15); Sodium Level 141 mmol/L (136-145)
[2021-08-17 16:19] LABS: ASO Titer 115.5 IU/mL (0.0-200.0)
[2021-08-17 17:10] LABS: ANTINUCLEAR ANTIBODIES DIRECT Negative (Negative)
== END 2021-08-15 23:59 | disposition home or self-care (01) ==
LOC: LAB 07:12
PROVIDERS: PCP Nurse Practitioner Family; Referring Provider Nurse Practitioner Family; Visit Provider Nurse Practitioner Family
DX: M54.2 Cervicalgia (principal); G50.0 Trigeminal neuralgia
CPT/HCPCS: 36415; 80053; 85027; 85652; 86038; 86060; 86140; 86431

== ENCOUNTER → 2021-10-08 | Outpatient (CLI) | payer OTHER, SELFPAY ==
--- NOTE | 2021-10-08 14:58 | CT_ITS ---
STUDY: CT CHEST WITHOUT CONTRAST REASON FOR EXAM: Male, 51 years old. BENIGN NEOPLASM OF MEDIASTINUM? RADIATION DOSAGE (If Supplied By Facility): CTDIvol = ( 8.48 ) mGy, DLP = ( 303.47 ) mGycm TECHNIQUE: Transaxial imaging was performed without the administration of intravenous contrast material. Multiplanar coronal and sagittal images were reformatted. Individualized dose optimization techniques were used for this CT. COMPARISON: No relevant priors. FINDINGS: CHEST The lungs are normal. There is no demonstrated pleural abnormality. There are calcifications of the coronary arteries. Normal mediastinum. Normal hilar regions. Normal unenhanced pulmonary arteries. Normal aorta arch and descending thoracic aorta. Normal osseous structures. There is no demonstrated abnormality of the visualized upper abdomen. Normal abdominal wall. There are mild degenerative changes of the visualized lumbar spine. CT/Chest without Contrast IMPRESSION: Normal unenhanced CT chest examination. Electronically Signed: Preston Cruz MD at 15:48 EDT ,
== END | disposition home or self-care (01) ==
PROVIDERS: PCP Nurse Practitioner Family; Visit Provider Orthopaedic Surgery
DX: D15.2 Benign neoplasm of mediastinum (principal)
CPT/HCPCS: 71250

== ENCOUNTER → 2023-03-17 | Outpatient (CLI) | payer OTHER, SELFPAY ==
--- NOTE | 2023-03-17 07:30 | RAD_ITS ---
STUDY: X-RAY - PELVIS AND RIGHT HIP REASON FOR EXAM: Male, 52 years old. RIGHT HIP PAIN TECHNIQUE: 3 views of the pelvis and hip. COMPARISON: None. FINDINGS: There is a non-specific bowel gas pattern. Normal visualized soft tissue structures. Normal bilateral iliac wings, sacroiliac joints and visualized sacrum. Normal bilateral superior and inferior pubic rami. Normal pubic symphysis. Normal bilateral ischial tuberosities. Decreased femoral head neck offset with a femoral dysplastic bump predisposing to cam-type femoral acetabular impingement. Normal acetabulum. There is mild articular joint space narrowing of the hip. 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 Electronically Signed: Jorge Newman MD at 17:30 EST ,
[2023-03-17 07:56] LABS: Hematocrit 42.2 % (40-54); Hemoglobin 13.5 g/dL (13.0-16.5); Mean Corpuscular Hgb 27.9 pg (27.0-32.0); Mean Corpuscular Volume 87.2 fL (80-94); Mean Platelet Vol. 10.4 fl (6.2-12.0); Platelet Count 201 K/mm3 (150-450); RBC Distribution Width CV 12.9 % (11.6-14.6); RBC Distribution Width SD 41.2 fl (35.1-43.9); Red Blood Count 4.84 M/mm3 (4.6-6.2); White Blood Count 4.9 K/mm3 (4.4-11.0)
[2023-03-17 08:42] LABS: ALB/GLOB Ratio 1.3 RATIO (0.9-2.4); AST(SGOT) 10 U/L (15-37); Alanine Aminotransfer ALT/SGPT 21 U/L (16-61); Albumin, Serum 3.9 g/dL (3.2-5.0); Alkaline Phosphatase 73 U/L (45-117); Anion Gap 3 (5-15); BUN 24 mg/dL (7-18); BUN/Creat Ratio 21.4 RATIO (10-20); Calcium,Total 8.7 mg/dL (8.5-10.1); Chloride 110 mmol/L (98-107); Creatinine, Serum 1.12 mg/dL (0.70-1.30); EST Glomerular Filtration Rate 72 mL/min (>60); Est Glom Filt Rate - Afr Amer 88 mL/min (>60); Glucose 110 mg/dL (74-106); PSA,Total - Annual Screen 0.82 ng/mL (0.00-4.00); Potassium 4.3 mmol/L (3.5-5.1); Protein, Total 6.9 g/dL (6.4-8.2); Sodium Level 141 mmol/L (136-145)
== END | disposition home or self-care (01) ==
LOC: LAB 07:10
PROVIDERS: PCP Nurse Practitioner Family; Referring Provider Nurse Practitioner Family; Visit Provider Nurse Practitioner Family
DX: R10.9 Unspecified abdominal pain (principal); M25.551 Pain in right hip; Z12.5 Encounter for screening for malignant neoplasm of prostate
CPT/HCPCS: 36415; 73502; 80053; 84153; 85027; G0103

== ENCOUNTER → 2023-05-11 | Outpatient (CLI) | payer OTHER, SELFPAY ==
[2023-05-11 15:37] LABS: Hematocrit 39.4 % (40-54); Hemoglobin 13.3 g/dL (13.0-16.5); Mean Corp Hgb Conc 33.8 g/dL (32-36); Mean Corpuscular Hgb 28.2 pg (27.0-32.0); Mean Corpuscular Volume 83.7 fL (80-94); Mean Platelet Vol. 10.7 fl (6.2-12.0); Platelet Count 242 K/mm3 (150-450); RBC Distribution Width CV 12.6 % (11.6-14.6); RBC Distribution Width SD 38.7 fl (35.1-43.9); Red Blood Count 4.71 M/mm3 (4.6-6.2); White Blood Count 5.6 K/mm3 (4.4-11.0)
[2023-05-11 16:39] LABS: ALB/GLOB Ratio 1.3 RATIO (0.9-2.4); AST(SGOT) 18 U/L (15-37); Alanine Aminotransfer ALT/SGPT 32 U/L (16-61); Albumin, Serum 3.9 g/dL (3.2-5.0); Alkaline Phosphatase 70 U/L (45-117); Anion Gap 4 (5-15); BUN 15 mg/dL (7-18); BUN/Creat Ratio 11.8 RATIO (10-20); Calcium,Total 8.9 mg/dL (8.5-10.1); Chloride 109 mmol/L (98-107); Creatinine, Serum 1.27 mg/dL (0.70-1.30); EST Glomerular Filtration Rate 63 mL/min (>60); Est Glom Filt Rate - Afr Amer 76 mL/min (>60); Globulin 3.1 g/dL (2.2-4.2); Glucose 119 mg/dL (74-106); Potassium 4.1 mmol/L (3.5-5.1); Sodium Level 139 mmol/L (136-145)
== END | disposition home or self-care (01) ==
PROVIDERS: PCP Nurse Practitioner Family; Referring Provider Nurse Practitioner Family; Visit Provider Nurse Practitioner Family
DX: R10.13 Epigastric pain (principal); K27.3 Acute peptic ulcer, site unspecified, without hemorrhage or perforation
CPT/HCPCS: 36415; 80053; 85027; 87086

== ENCOUNTER → 2023-05-17 | Outpatient (CLI) | payer OTHER, SELFPAY ==
--- NOTE | 2023-05-17 08:11 | RAD_ITS ---
STUDY: AIR CONTRAST ESOPHAGRAM AND UPPER GI SERIES REASON FOR EXAM: Male, 52 years old. Mid upper abdominal pain for 2 weeks. FLUOROSCOPY TIME (if supplied): (32 seconds) minutes/seconds. 23.44 mGy. 19 images were obtained. TECHNIQUE: SINGLE CONTRAST AND AIR CONTRAST FLUOROSCOPIC IMAGES. COMPARISON: None. FINDINGS: The cervical esophagus demonstrates normal motility without aspiration. There is no stricture or extrinsic mass effect. No intraluminal polypoid mass is identified. The thoracic esophagus distends well without stricture or mucosal fold thickening. No mucosal ulcerations are identified. There is no extrinsic mass effect. There are no diverticula. No hiatal hernia or gastroesophageal reflux was identified. The stomach distends well without mucosal fold thickening or mucosal ulceration. There is no intraluminal mass. The duodenal bulb is freely distensible without deformity or ulceration. The duodenal sweep is normal in position and caliber. RAD/Upper GI Dual Contrast IMPRESSION: Normal air-contrast upper GI series. Electronically Signed: Preston Cruz MD at 10:20 EST ,
--- OUTSIDE RECORDS SUMMARY | 2023-05-17 08:12 | XMS RPT_ITS | CCD ---
Author Name Unknown Address [address] [place] [address] Organization [facility] Care Team Providers Care Director Case Management Name Role Phone Chon Sierra Unavailable Jesus Alberto Stewart DO Primary Care Provider Katie vailable Jorge Bray CNP Primary Care Provider Chon Sierra Unavailable Jorge Bray CNP Primary Care Provider 1( [phone] CAYETANO SMITH Attending Unavaila ble JORGE BRAY Primary Care Unavailable JORGE MENDEZ Attending Unavailable JESUS ALBERTO STEWART Primary Care Unavailable JORGE BRAY Primary Care Unavailable JORGE FLYNN APRN, CNP Primary Care Phys ician JORGE FLYNN APRN, CNP Attending U navailable JORGE FLYNN APRN, CNP Primary Care U navailable Medications Current Medications Medication Drug Class(es) Dates Sig (Normalized) Sig (Original) famotidine 40 mg oral tablet (1 source) Histamine-2 Receptor Antagonist Start: 05-11-2023 End: 06-10-2023 Pepcid 40 mg oral tablet Dose : 80 mg = 2 tab(s), Oral, qHS, # 60 tab(s), 0 Refill(s), Pharmacy: [id number], Epigastric abdominal pain Peptic ulcer, acute, 179.5, cm, 05/11/23 7:05:00 EST, Height, kg, 05/11/23 7:05:00 EST, Dosing Weight Start Date: 05/11/23 Stop Date: 06/10/23 Status: Ordered pantoprazole 40 mg delayed release oral tablet (2 sources) Proton Pump Inhibitor Start: 03-26-2023 pantoprazole 40 mg oral enteric coated tablet Dose : 40 mg = 1 tab(s), Oral, qDay, # 30 tab(s), 0 Refill(s), Pharmacy: [facility], Epigastric abdominal pain Peptic ulcer, acute, 179.5, cm, 05/11/23 7:05:00 EST, Height, kg, 05/11/23 7:05:00 EST, Dosing Weight Start Date: 05/11/23 Status: Ordered Completed/Discontinued Medications Medication Drug Class(es) Dates Sig (Normalized) Sig (Original) hydrocortisone acetate 25 mg rectal suppository (5 sources) Corticosteroid take 25 mg rectal route twice daily hydrocortisone (HEMORRHOIDAL HC) 25 mg suppository 25 mg by RECTAL route twice daily. 0 Active Problems Active Problems Problem Classification Problem Date Documented Da te Episodic/Chronic Abdominal pain (4 sources) Epigastric pain; Translations: [Right flank pain] Onset: 05-11-2023 05-11-2023 Episodic Blindness and vision defects (1 source) Wears glasses 08-29-2019 Episodic Cancer; other and unspecified primary (1 source) Malignant tumor of mediastinum; Translations: [Malignant neoplasm of mediastinum, part unspecified] Chronic Esophageal disorders (2 sources) Agustin's esophagus; Translations: [Gastroesophageal reflux disease] 03-16-2023 Chronic Gastroduodenal ulcer (except hemorrhage) (1 source) Acute peptic ulcer 05-11-2023 Episodic Hemorrhoids (1 source) Hemorrhoids 12-07-2019 Episodic Inflammatory conditions of male genital organs (1 source) Epididymitis 03-16-2023 Episodic Other and unspecified benign neoplasm (1 source) Melanocytic nevus 12-26-2019 Episodic Other male genital disorders (1 source) Impotence 11-10-2018 Chronic Other nervous system disorders (1 source) Nerve root disorder 07-24-2021 Chronic Other nervous system disorders (1 source) Trigeminal neuralgia 07-24-2021 Episodic Other non-traumatic joint disorders (1 source) Femoral acetabular impingement 03-26-2023 Episodic Past or Other Problems Problem Classification Problem Date Documented Da te Episodic/Chronic Anal and rectal conditions (7 sources) Anal fissure; Translations: [Anal fissure, unspecified] Onset: 10-15-2011 Episodic Other bone disease and musculoskeletal deformities (5 sources) Fibrous dysplasia of bone; Translations: [Fibrous dysplasia (monostotic), unspecified site] Onset: 04-07-2013 04-07-2013 Episodic Other inflammatory condition of skin (6 sources) Pruritus ani; Translations: [Pruritus ani] Onset: 08-10-2011 Episodic Pancreatic disorders (not diabetes) (5 sources) Cyst of pancreas; Translations: [Cyst of pancreas] Onset: 02-23-2013 02-23-2013 Episodic Results Test Name Value Interpretation Reference Range Facil ity Vital Signs Date Time Vital Sign Value Performing Clinician Faci lity 10-23-2021 15:13-0400 Body height 177.8 cm Cayetano Smith MD Work Phone: [facility] 10-23-2021 15:13-0400 Body weight 86.64 kg Cayetano Smith MD Work Phone: [facility] 10-23-2021 15:13-0400 Diastolic blood pressure 80 mm[Hg] Cayetano Smith MD Work Phone: [facility] 10-23-2021 15:13-0400 Heart rate 60 /min Cayetano Smith MD Work Phone: [facility] 10-23-2021 15:13-0400 Respiratory rate 16 /min Cayetano Smith MD Work Phone: [facility] 10-23-2021 15:13-0400 SaO2% (BldA) [Mass fraction] 98 % Cayetano Smith MD Work Phone: [facility] 10-23-2021 15:13-0400 Systolic blood pressure 130 mm[Hg] Cayetano Smith MD Work Phone: [facility] 07-24-2021 07:250400 Body height 177.8 cm Jorge Mendez MD Work Phone: [facility] 07-24-2021 07:25040 Body temperature 97.59 [degF] Jorge Mendez MD Work Phone: [facility] 07-24-2021 07:25-0400 Body weight 89.81 kg Jorge Mendez MD Work Phone: [facility] 07-24-2021 07:25-0400 Diastolic blood pressure 81 mm[Hg] Jorge Mendez MD Work Phone: [facility] 07-24-2021 07:25-0400 Heart rate 83 /min Jorge Mendez MD Work Phone: [facility] 07-24-2021 07:25-0400 SaO2% (BldA) [Mass fraction] 100 % Jorge Mendez MD Work Phone: [facility] 07-24-2021 07:25-0400 Systolic blood pressure 132 mm[Hg] Jorge Mendez MD Work Phone: [facility] Encounters Encounter Date Encounter Type Care Provider Facility Start: 05-11-2023 End: 05-16-2023 ambulatory JORGE BRAY MACHINE SETUP OPERATOR - INVENTORY ANALYST Facility: Start: 05-11-2023 End: 05-15-2023 Outreach Lab JORGE BRAY MACHINE SETUP OPERATOR - INVENTORY ANALYST [facility] Start: 04-13-2022 End: 04-13-2022 ambulatory JORGE BRAY Facility:[facility] Start: 02-23-2022 Telephone encounter Cayetano Smith MD Work Phone: [facility] Procedures Date Procedure Procedure Detail Performing Clinician Start: 06-06-2018 Colonoscopy JORGE CERVANTES MACHINE SETUP OPERATOR - INVENTORY ANALYST Plan of Treatment Date Care Activity Detail Author Start: 01-01-2022 Influenza vaccination [facility] Start: 09-05-2021 DIABETES SCREEN DIABETES SCREEN [facility] Start: 05-03-2021 DEPRESSION ASSESSMENT DEPRESSION ASSESSMENT [facility] Start: 01-01-2021 Influenza vaccination INFLUENZA (#1) [facility] Start: 2018 SHINGRIX VACCINE (1 of 2) SHINGRIX VACCINE (1 of 2) [facility] Start: 2013 COLOGUARD (FIT-DNA) COLOGUARD (FIT-DNA) [facility] Start: 2013 Colonoscopy COLONOSCOPY [facility] Start: 2013 COLORECTAL CANCER SCREENING COLORECTAL CANCER SCREENING [facility] Start: [address] COLONOGRAPHY [facility] Start: 2013 FECAL OCCULT BLOOD FECAL OCCULT BLOOD [facility] Start: 2013 SIGMOIDOSCOPY SIGMOIDOSCOPY [facility] Start: 2003 LIPID SCREEN LIPID SCREEN [facility] Start: 1987 Urine microalbumin profile DTAP,TDAP,TD (1 - Tdap) [facility] Start: 1986 HEPATITIS C SCREENING HEPATITIS C SCREENING [facility] Start: 1986 HIV SCREENING HIV SCREENING [facility] Start: 1980 Adult depression screening assessment DEPRESSION SCREENING [facility] Start: 1973 COVID-19 VACCINE (#1) COVID-19 VACCINE (#1) [facility] Start: 1973 COVID-19 VACCINE (1) COVID-19 VACCINE (1) [facility] Start: 1968 COVID-19 VACCINE (#1) COVID-19 VACCINE (#1) [facility] Start: 1968 HEPATITIS B (1 of 3 - 3-dose series) HEPATITIS B (1 of 3 - 3-dose series) [facility] End: 03-25-2023 Ct thorax w/o contrast material CT CHEST WO IVCON Radiology Routine Malignant neoplasm of mediastinum (HCC) 1 Occurrences starting 02/23/2022 until 03/25/2023 [facility] Work Phone: Immunizations Immunization Date Immunization Notes Care Provider Wayne newsome 01-24-2015 tetanus and diphther ia toxoids, adsorbed, preservative free, for adult use (5 Lf of tetanus toxoid and 2 Lf of diphtheria toxoid) JORGE BRAY MACHINE SETUP OPERATOR - INVENTORY ANALYST [facility] Payers Date Payer Category Payer Unknown MMO MMO [employer] [id number] 2016-Present [phone] [address] [place] [address] PPO [id number] 2016 Unknown MMO MMO [employer] [id number] 2016-Present [phone] [address] [place] [address] PPO [id number] 2016 Unknown [id number] 1970 Unknown [id number] Social History Date Type Detail Facility Start: 10-04-2018 [facility] Start: 10-04-2018 Tobacco use and exposure Former smokeless tobacco user [facility] History of tobacco use Snuff User [facility] Start: 07-24-2021 End: 10-23-2021 Alcohol intake Current drinker of alcohol (finding) [facility] Start: 07-24-2021 End: 10-23-2021 Alcohol intake [facility] Start: 02-22-2013 Tobacco Comment snuff for 28 years [facility] Start: 1970 Sex Assigned At Not on file [facility] Start: 07-14-2021 End: 10-23-2021 Exposure to SARS-CoV-2 (event) Not sure [facility] History of tobacco use Current smoker [facility] Start: 05-11-2023 Tobacco smoking status Smokele ss tobacco user within last 30 days [facility] Physicians [facility] Clinical Notes 07-24-2021 to 05-12-2023 Telephone Encounter - Diya Tran - 02/23/2022 10:15 AM EDTPcamden Smith MD - 10/23/2021 3:38 PM EDTTelephone Encounter - Christina Pete - 10/03/2021 9:03 AM EDTPatient Instructions Note Date & Type Note Facility 05-12-2023 Note . MICRO - Microbiology PROCEDURE: Urine Culture [*1] SOURCE: Urine, Clean Catch BODY SITE: COLLECTED DATE/TIME: 05/11/2023 17:29 EST RECEIVED DATE/TIME: 05/11/2023 18:49 EST START DATE/TIME: 05/11/2023 18:49 EST FREE TEXT SOURCE: FINAL REPORTS Final Report [] Verified Date/Time/Personnel: 05/12/2023 14:44 EST <10,000 cfu/ml. No Significant growth. Sensitivity not indicated. Performing Locations *1: This test was performed at: [facility], [address] [place] [address], [facility] , [facility] ([place]) 04-13-2022 Note HNO ID: [id number] Author: Tae Ruth APRN.INVENTORY ANALYST Service: ? Author Type: Nurse Practitioner Type: Progress Notes Filed: 04/13/2022 3:41 PM Note Text: Subjective HPI HPI Mason Yousif is a 51 year old male who presents today for CC of cough, fever, body aches, congestion, h/a. This started 2 days ago. Has tried otc medication for relief. Symptoms are worsened by nothing. Risk factors sick exposures at work. .Patient presents with: Cough: Fever, congestion, COREA x2 days PAST MEDICAL HISTORY Diagnosis Date Chondrosarcoma (HCC) DVT (deep venous thrombosis) (HCC) 05/03/2010 left leg Hemorrhoid Osteoarthritis Pancreatic cyst PSEUDO PAST SURGICAL HISTORY Procedure Laterality Date PAST SURGICAL HISTORY OF 2010 left knee repair of MCL PAST SURGICAL HISTORY OF release of testicular torsion RPR 1ST INGUN HRNA AGE 5 YRS/> REDUCIBLE Hernia repair, inguinal, right x2 RPR 1ST INGUN HRNA AGE 5 YRS/> REDUCIBLE 1990 AND 1999 Hernia repair, inguinal right x2 ALLERGIES Patient has no known allergies. MEDICATIONS Omeprazole 40 mg capsule Take 40 mg by mouth once daily. oseltamivir (TAMIFLU) 75 mg capsule Take 1 capsule by mouth twice daily for 5 days. omeprazole magnesium (PRILOSEC ORAL) Take by mouth. (Patient not taking: Reported on 10/23/2021 ) hydrocortisone (HEMORRHOIDAL HC) 25 mg suppository 25 mg by RECTAL route twice daily. (Patient not taking: Reported on 10/23/2021 ) FAMILY HISTORY Problem Relation Age of Onset Prostate Cancer Father 53 None Mother None Sister Social History Tobacco Use Smoking status: Former Smokeless tobacco: Former Types: Snuff Tobacco comments: snuff for 28 years Substance Use Topics Alcohol use: Yes Alcohol/week: 5.0 standard drinks Types: 2 Cans of Beer (12oz) per week Drug use: No ROS Objective Blood pressure 136/84, pulse 85, temperature (!) 38.6 ?C (101.5 ?F), resp. rate 20, weight 87.6 kg (193 lb 3.2 oz), SpO2 95 %. Physical Exam Constitutional: General: He is not in acute distress. Appearance: He is ill-appearing. He is not toxic-appearing or diaphoretic. HENT: Head: Normocephalic and atraumatic. Right Ear: Hearing, tympanic membrane, ear canal and external ear normal. Left Ear: Hearing, tympanic membrane, ear canal and external ear normal. Nose: Nose normal. Mouth/Throat: Pharynx: Uvula midline. No pharyngeal swelling, oropharyngeal exudate, posterior oropharyngeal erythema or uvula swelling. Eyes: General: Lids are normal. No scleral icterus. Right eye: No discharge. Left eye: No discharge. Conjunctiva/sclera: Conjunctivae normal. Pupils: Pupils are equal, round, and reactive to light. Neck: Trachea: Trachea normal. Cardiovascular: Rate and Rhythm: Normal rate and regular rhythm. Heart sounds: Normal heart sounds. Pulmonary: Effort: Pulmonary effort is normal. Breath sounds: Normal breath sounds. Musculoskeletal: Cervical back: Normal range of motion and neck supple. Lymphadenopathy: Cervical: No cervical adenopathy. Right cervical: No superficial cervical adenopathy. Left cervical: No superficial cervical adenopathy. Skin: Findings: No rash. Neurological: Mental Status: He is alert and oriented to person, place, and time. ASSESSMENT/PLAN: 1. Influenza-like illness - ICD9: 487.1, ICD10: J11.1 -discussed expected course -discussed supportive care -discussed red flags and reasons for f/u -discussed contagiousness, reason/when close family members should f/u, and whom to avoid -f/u in 3-5 days if symptoms worsening -discussed pros/cons of tamiflu, elects treatment. - OSELTAMIVIR 75 MG CAPSULE Tae Ruth APRN.[facility] 02-23-2022 Miscellaneous Notes LMOM to schedule testing with CS then schedule with Dr Smith *PP [phone]* 6 Month F/UP for Mediastinal Mass with CT CHEST WO IVCON PRIOR *PP Per Dr Smith* documented in this encounter [facility] 10-23-2021 Note HNO ID: [id number] Author: Cayetano Smith MD Service: ? Author Type: Physician Type: Progress Notes Filed: 10/23/2021 3:48 PM Note Text: Consult HANDP Mason Yousif is a 51 year old male here for cardiothoracic surgery evaluation. HPI: Patient was undergoing an MRI for some anterior chest wall and left posterior scapular pain and during that study some mention was made of lobulated abnormality in the mediastinum in the area of thymic remnant and pleural pericardial fat. The patient then underwent a CT scan of the chest which was read as normal . However, review of the CT scan of the chest with the radiologist along with the MRI report reveals that the patient does have a little more than average or normal amount of fat in the area of the thymic remnant. Retrospectively, this was present on a CT scan of the chest in 2012 and may be slightly more prominent at this time as is his subcutaneous tissue in the chest. I do not feel his symptoms are related to this finding. MEDICATIONS: Current Outpatient Medications Medication Sig Dispense Refill - Omeprazole 40 mg capsule Take 40 mg by mouth once daily. 5 - omeprazole magnesium (PRILOSEC ORAL) Take by mouth. (Patient not taking: Reported on 10/23/2021 ) - hydrocortisone (HEMORRHOIDAL HC) 25 mg suppository 25 mg by RECTAL route twice daily. (Patient not taking: Reported on 10/23/2021 ) No current facility-administered medications for this visit. ALLERGIES No Known Allergies Past medical history is negative for history of diabetes mellitus, liver disease, kidney disease, myocardial infarction, stroke, or congestive heart failure. Past surgical history is remarkable for right inguinal hernia repair x2, left knee arthroscopic surgery, nasal and sinus surgery, and tonsillectomy in the distant past. Social history the patient does have a less than 5 pack-year cigarette smoking history many years ago. Alcohol intake averages 2-3 drinks per day. 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 He is and his is present with him in the office and exam room today. Family history is remarkable for some hypertension, stroke, father with lung cancer and prostate cancer, and an aunt with breast cancer. Review of systems is mostly remarkable for the symptoms in the chest and back that led to the MRI of the spine. BP 130/80 Pulse 60 Resp 16 Ht 5' 10 (1.78m) Wt 191 lb (86.6kg) SpO2 98% BMI 27.41 kg/(m2). PHYSICAL EXAM: Well-developed well-nourished male no acute distress. Is alert and oriented x3. Examination neck showed no carotid bruits. Cardiac exam remarkable regular rhythm without pathologic murmur rub. Lungs are clear to auscultation anteriorly and posteriorly. The abdomen has bowel sounds present and grossly benign. Upper extremity exam shows radial pulses palpable bilaterally. Lower extremities are intact with no edema pulses present. Total time in direct patient contact today was 25 minutes. Greater than 50% of the time was spent counseling and/or coordination of care. 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 PLAN: Follow-up CT scan of the chest no contrast in 6 months. Will be done in [place] as that is where the most recent CAT scan was done as well. FOLLOW UP: Phone follow-up after next CT scan of the chest per patient request. Cayetano Smith MD [facility] 10-23-2021 History of Present illness Narrative Consult H&P Mason Yousif is a 51 year old male here for cardiothoracic surgery evaluation. HPI: Patient was undergoing an MRI for some anterior chest wall and left posterior scapular pain and during that study some mention was made of lobulated abnormality in the mediastinum in the area of thymic remnant and pleural pericardial fat. The patient then underwent a CT scan of the chest which was read as normal . However, review of the CT scan of the chest with the radiologist along with the MRI report reveals that the patient does have a little more than average or normal amount of fat in the area of the thymic remnant. Retrospectively, this was present on a CT scan of the chest in 2012 and may be slightly more prominent at this time as is his subcutaneous tissue in the chest. I do not feel his symptoms are related to this finding. MEDICATIONS: Current Outpatient Medications Medication Sig Dispense Refill Omeprazole 40 mg capsule Take 40 mg by mouth once daily. 5 omeprazole magnesium (PRILOSEC ORAL) Take by mouth. (Patient not taking: Reported on 10/23/2021 ) hydrocortisone (HEMORRHOIDAL HC) 25 mg suppository 25 mg by RECTAL route twice daily. (Patient not taking: Reported on 10/23/2021 ) No current facility-administered medications for this visit. ALLERGIES No Known Allergies Past medical history is negative for history of diabetes mellitus, liver disease, kidney disease, myocardial infarction, stroke, or congestive heart failure. Past surgical history is remarkable for right inguinal hernia repair x2, left knee arthroscopic surgery, nasal and sinus surgery, and tonsillectomy in the distant past. Social history the patient does have a less than 5 pack-year cigarette smoking history many years ago. Alcohol intake averages 2-3 drinks per day. 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 He is and his is present with him in the office and exam room today. Family history is remarkable for some hypertension, stroke, father with lung cancer and prostate cancer, and an aunt with breast cancer. Review of systems is mostly remarkable for the symptoms in the chest and back that led to the MRI of the spine. BP 130/80 Pulse 60 Resp 16 Ht 5' 10 (1.78m) Wt 191 lb (86.6kg) SpO2 98% BMI 27.41 kg/(m^2). PHYSICAL EXAM: Well-developed well-nourished male no acute distress. Is alert and oriented x3. Examination neck showed no carotid bruits. Cardiac exam remarkable regular rhythm without pathologic murmur rub. Lungs are clear to auscultation anteriorly and posteriorly. The abdomen has bowel sounds present and grossly benign. Upper extremity exam shows radial pulses palpable bilaterally. Lower extremities are intact with no edema pulses present. Total time in direct patient contact today was 25 minutes. Greater than 50% of the time was spent counseling and/or coordination of care. 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 PLAN: Follow-up CT scan of the chest no contrast in 6 months. Will be done in [place] as that is where the most recent CAT scan was done as well. FOLLOW UP: Phone follow-up after next CT scan of the chest per patient request. Cayetano Smith MD documented in this encounter [facility] 10-03-2021 Miscellaneous Notes Referral sent from Bib Mckenzie DO for Benign neoplasm of mediastinum. No orders or info attached. 09/24 Sahil @ [facility] to send over office notes/reports. 09/26 Mary @ [facility] to place order for Chest CT and send results. 10/03 Mary Hernandez @ [place] [facility] confirmed Chest CT is scheduled for 10/08/21 at [place]. documented in this encounter [facility] 07-24-2021 Note HNO ID: [id number] Author: Jorge Mendez MD Service: ? Author Type: Physician Type: Progress Notes Filed: 07/24/2021 8:27 AM Note Text: HISTORY AND PHYSICAL Mason Yousif 1970 REFERRING PHYSICIAN: Self CHIEF COMPLAINT: Anal Pain HPI: Mason is a 51 year old male with a complaint of anal pain. he has noticed anal pain with bleeding for the past 1 week. he denies a history of constipation and straining. Patient states he suffered from episodic burning and smaller amounts of rectal bleeding on and off for years. He states this episode he had more blood per rectum than previously. It was not mixed within the stool. He does state he has a sensation of passing razor blades. He states he saw a hemorrhoid specialist in [employer] he is uncertain who the person was who told him he had a yeast infection. He was given recommendation for hydrocortisone suppositories. These hurt occasionally when they insert and he does not note this is improving his symptoms. He recalls he had a colonoscopy [address] Barrientos he recalls and that this was normal. SIGNIFICANT MEDICAL PROBLEMS: PAST MEDICAL HISTORY Diagnosis Date - Chondrosarcoma (HCC) - DVT (deep venous thrombosis) (HCC) 05/03/2010 left leg - Hemorrhoid - Osteoarthritis - Pancreatic cyst PSEUDO OPERATIONS: PAST SURGICAL HISTORY Procedure Laterality Date - PAST SURGICAL HISTORY OF 2010 left knee repair of MCL - PAST SURGICAL HISTORY OF release of testicular torsion - RPR 1ST INGUN HRNA AGE 3 YRS/> REDUCIBLE Hernia repair, inguinal, right x2 - RPR 1ST INGUN HRNA AGE 3 YRS/> REDUCIBLE 1990 AND 1999 Hernia repair, inguinal right x2 CURRENT MEDICATIONS: Current Outpatient Medications Medication Sig Dispense Refill - omeprazole magnesium (PRILOSEC ORAL) Take by mouth. - hydrocortisone (HEMORRHOIDAL HC) 25 mg suppository 25 mg by RECTAL route twice daily. - Omeprazole 40 mg capsule Take 40 mg by mouth once daily. 5 No current facility-administered medications for this visit. ALLERGIES: Patient has no known allergies. PERSONAL HISTORY: Social History Tobacco Use - Smoking status: Former Smoker - Smokeless tobacco: Former User Types: Snuff - Tobacco comment: snuff for 28 years Substance Use Topics - Alcohol use: Yes Alcohol/week: 5.0 standard drinks Types: 2 Cans of Beer (12oz) per week - Drug use: No FAMILY HISTORY: FAMILY HISTORY Problem Relation Age of Onset - Prostate Cancer Father 53 - None Mother - None Sister REVIEW OF SYMPTOMS: The review of systems data was entered by the nurse and reviewed by sd Nursing Notes: Angela Craven 07/24/2021 7:31 AM Signed REVIEW OF SYSTEMS: General: The patient NOTES fatigue, denies weight loss, denies weight gain, denies feeling hot, and denies feelings of cold. Eyes: The patient denies glaucoma, denies eye injury/surgery, wears glasses or contacts. Ear/Nose/Throat: The patient denies allergies, denies hayfever, denies ear infections, and denies bloody noses. Cardiovascular: The patient denies chest pain, denies heart disease, denies high blood pressure,denies cardiac stent, denies prior heart attack, denies irregular heart beat, denies high cholesterol, denies poor circulation, denies heart failure, other cardiac issues, denies claudication, denies cold feet, denies peripheral arterial stent. Respiratory: The patient denies tuberculosis, denies pneumonia, denies frequent cough, denies pulmonary embolism, denies shortness of breath, and denies coughing up blood. Gastrointestinal: The patient denies difficulty swallowing, NOTES acid reflux, denies ulcers, denies vomiting, denies jaundice/hepatitis, denies gallbladder problems, denies black or tarry stools,NOTES hemorrhoids, NOTES bleeding from rectum, denies diverticulitis, denies constipation, denies diarrhea, denies loss of stool control, and denies hernias. Kidney/Bladder: The patient denies kidney stones, denies urine infections, and denies bloody urine. Skin: The patient denies a history of skin cancer, denies bleeding/changing moles, and denies a history of skin rash. Neurologic: The patient denies a history of epilepsy/convulsions, denies headaches, denies head/spinal injuries, and denies stroke/TIA. Psychiatric: The patient denies psychiatric medications, denies depression, and denies voices, denies substance abuse. Endocrine: The patient denies thyroid disorders, denies diabetes, and denies hormonal problems. Hematologic: The patient denies a history of bruising, denies bleeding, and denies anemia, denies blood clots. Infections: The patient denies a history of measles and mumps, denies rheumatic fever, and denies sexually transmitted diseases. Musculoskeletal: The patient NOTES back pain/injury, NOTES back problems, denies sciatica, denies knee/foot trouble, NOTES arthritis, or denies gout. When was patient's last Mammogram screening? N/A [place] (more content not included)... [facility] 07-24-2021 History of Present illness Narrative HISTORY AND PHYSICAL Mason Yousif 1970 REFERRING PHYSICIAN: Self CHIEF COMPLAINT: Anal Pain HPI: Mason is a 51 year old male with a complaint of anal pain. he has noticed anal pain with bleeding for the past 1 week. he denies a history of constipation and straining. Patient states he suffered from episodic burning and smaller amounts of rectal bleeding on and off for years. He states this episode he had more blood per rectum than previously. It was not mixed within the stool. He does state he has a sensation of passing razor blades. He states he saw a hemorrhoid specialist in [employer] he is uncertain who the person was who told him he had a yeast infection. He was given recommendation for hydrocortisone suppositories. These hurt occasionally when they insert and he does not note this is improving his symptoms. He recalls he had a colonoscopy [address] Barrientos he recalls and that this was normal. SIGNIFICANT MEDICAL PROBLEMS: PAST MEDICAL HISTORY Diagnosis Date Chondrosarcoma (HCC) DVT (deep venous thrombosis) (HCC) 05/03/2010 left leg Hemorrhoid Osteoarthritis Pancreatic cyst PSEUDO OPERATIONS: PAST SURGICAL HISTORY Procedure Laterality Date PAST SURGICAL HISTORY OF 2010 left knee repair of MCL PAST SURGICAL HISTORY OF release of testicular torsion RPR 1ST INGUN HRNA AGE 5 YRS/> REDUCIBLE Hernia repair, inguinal, right x2 RPR 1ST INGUN HRNA AGE 5 YRS/> REDUCIBLE 1990 & 1999 Hernia repair, inguinal right x2 CURRENT MEDICATIONS: Current Outpatient Medications Medication Sig Dispense Refill omeprazole magnesium (PRILOSEC ORAL) Take by mouth. hydrocortisone (HEMORRHOIDAL HC) 25 mg suppository 25 mg by RECTAL route twice daily. Omeprazole 40 mg capsule Take 40 mg by mouth once daily. 5 No current facility-administered medications for this visit. ALLERGIES: Patient has no known allergies. PERSONAL HISTORY: Social History Tobacco Use Smoking status: Former Smoker Smokeless tobacco: Former User Types: Snuff Tobacco comment: snuff for 28 years Substance Use Topics Alcohol use: Yes Alcohol/week: 5.0 standard drinks Types: 2 Cans of Beer (12oz) per week Drug use: No FAMILY HISTORY: FAMILY HISTORY Problem Relation Age of Onset Prostate Cancer Father 53 None Mother None Sister REVIEW OF SYMPTOMS: The review of systems data was entered by the nurse and reviewed by sd Nursing Notes: Angela Goldmanz 07/24/2021 7:31 AM Signed REVIEW OF SYSTEMS: General: The patient NOTES fatigue, denies weight loss, denies weight gain, denies feeling hot, and denies feelings of cold. Eyes: The patient denies glaucoma, denies eye injury/surgery, wears glasses or contacts. Ear/Nose/Throat: The patient denies allergies, denies hayfever, denies ear infections, and denies bloody noses. Cardiovascular: The patient denies chest pain, denies heart disease, denies high blood pressure,denies cardiac stent, denies prior heart attack, denies irregular heart beat, denies high cholesterol, denies poor circulation, denies heart failure, other cardiac issues, denies claudication, denies cold feet, denies peripheral arterial stent. Respiratory: The patient denies tuberculosis, denies pneumonia, denies frequent cough, denies pulmonary embolism, denies shortness of breath, and denies coughing up blood. Gastrointestinal: The patient denies difficulty swallowing, NOTES acid reflux, denies ulcers, denies vomiting, denies jaundice/hepatitis, denies gallbladder problems, denies black or tarry stools,NOTES hemorrhoids, NOTES bleeding from rectum, denies diverticulitis, denies constipation, denies diarrhea, denies loss of stool control, and denies hernias. Kidney/Bladder: The patient denies kidney stones, denies urine infections, and denies bloody urine. Skin: The patient denies a history of skin cancer, denies bleeding/changing moles, and denies a history of skin rash. Neurologic: The patient denies a history of epilepsy/convulsions, denies headaches, denies head/spinal injuries, and denies stroke/TIA. Psychiatric: The patient denies psychiatric medications, denies depression, and denies voices, denies substance abuse. Endocrine: The patient denies thyroid disorders, denies diabetes, and denies hormonal problems. Hematologic: The patient denies a history of bruising, denies bleeding, and denies anemia, denies blood clots. Infections: The patient denies a history of measles and mumps, denies rheumatic fever, and denies sexually transmitted diseases. Musculoskeletal: The patient NOTES back pain/injury, NOTES back problems, denies sciatica, denies knee/foot trouble, NOTES arthritis, or denies gout. When was patient's last Mammogram screening? N/A Last Colonoscopy: 2018 Angela Craven PHYSICAL EXAMINATION: General: The patient is 51 year old male, well nourished, well hydrated in no acute distress. The patient is oriented to time, place, and person. VITALS: Blood pressure 132/81, pulse 83, temperature 36.4 C (97.6 F), height 177.8 cm (5' 10 ), weight 89.8 kg (198 lb), SpO2 100 %. Body mass index is 28.41 kg/m . HEENT: exam deferred Respiratory: exam deferred Cardiac: exam deferred. Abdominal exam: exam deferred Rectal exam: External exam -no obvious sentinal pile. Patient notes discomfort with attempting to spread his gluteal regions so that no true fissure can be noted. He states his discomfort seems somewhat off to the left of midline Digital rectal exam - deferred Extremities: exam deferred Other: LABORATORY VALUES: As Noted RADIOLOGIC STUDIES: As Noted Assessment IMPRESSION: LIKELY ANAL FISSURE PLAN: Mason is instructed to perform sitz baths twice a day and after each bowel movement. Place dibucaine ointment on anus as needed and before all bowel movements. Keep stools soft and avoid straining if possible. Diltaizem ointment is prescribed, use twice a day. Note that this is different fron the dibucaine or pain ointment that you should use as often as needed Return if symptoms fail to improve. We discussed that regulation of stool is braswell to healing of the fissure. Most fissures heal with these measures. If this does not improve his symptoms then I would plan for colonoscopy with a anoscopy to attempt to assess his anal canal Diagnoses: (K60.2) Anal fissure (primary encounter diagnosis) (L29.0) Pruritus ani (K62.89) Anal or rectal pain Return to Clinic: The patient is instructed to follow-up with me as needed. Jorge Mendez MD documented in this encounter [facility] 07-24-2021 Instructions Jorge Mendez MD - 07/24/2021 8:19 AM EDT The following instructions are important for you related to your office visit today with the [facility]. INSTRUCTIONS FOR AN ANAL FISSURE You have an anal fissure. An anal fissure is a small tear at at the edge of the anus. It is usually caused by straining with bowel movements, but sometime it occurs during periods of loose stools or diarrhea. 70% of the time, anal fissures will heal will regulation of the stools and conservative measures. Regulation of the bowel habits is most important - The fissure will not heal if there is continued straining. I usually recommend fiber for initial regularion. Add Miralax - now available over the counter, if fiber alone isn't helping the constipation. Healing of the fissure will not occur until bowel regulation is achieved I recommend that you avoid spicy foods and perform sitz baths three to four times per day and after bovel movements. A sitz bath is drawing luke warm water in the bathtub and soaking. The purpose is to relax the sphincter and rinse the anal area. DO NOT ADD EPSOM SALTS OR OTHER INGREDIENTS THIS CAN INCREASE THE BURNING. I will recommend a topical pain ointment, usually dibucaine or proctocream With each bowel movement, I recommend placing the topcial pain ointment prior to the bowel movements and use baby wipes and perform a sitz bath after each bowel movement. Dibucaine can be used between times as needed for anal pain. It the above measures are not helping within one week, call the office, and we may prescribe Diltiazem ointment. ( this is different from Dibucaine). If prescribed, it should be applied to the anal area twice a day. If you note any difficulties or concerns, you should contact our office immediately. If you note any additional difficulties, questions, or concerns, you should contact our office immediately @ [phone] and ask to be transferred to the General Surgery department. documented in this encounter [facility] 07-24-2021 Nurse Note REVIEW OF SYSTEMS: General: The patient NOTES fatigue, denies weight loss, denies weight gain, denies feeling hot, and denies feelings of cold. Eyes: The patient denies glaucoma, denies eye injury/surgery, wears glasses or contacts. Ear/Nose/Throat: The patient denies allergies, denies hayfever, denies ear infections, and denies bloody noses. Cardiovascular: The patient denies chest pain, denies heart disease, denies high blood pressure,denies cardiac stent, denies prior heart attack, denies irregular heart beat, denies high cholesterol, denies poor circulation, denies heart failure, other cardiac issues, denies claudication, denies cold feet, denies peripheral arterial stent. Respiratory: The patient denies tuberculosis, denies pneumonia, denies frequent cough, denies pulmonary embolism, denies shortness of breath, and denies coughing up blood. Gastrointestinal: The patient denies difficulty swallowing, NOTES acid reflux, denies ulcers, denies vomiting, denies jaundice/hepatitis, denies gallbladder problems, denies black or tarry stools,NOTES hemorrhoids, NOTES bleeding from rectum, denies diverticulitis, denies constipation, denies diarrhea, denies loss of stool control, and denies hernias. Kidney/Bladder: The patient denies kidney stones, denies urine infections, and denies bloody urine. Skin: The patient denies a history of skin cancer, denies bleeding/changing moles, and denies a history of skin rash. Neurologic: The patient denies a history of epilepsy/convulsions, denies headaches, denies head/spinal injuries, and denies stroke/TIA. Psychiatric: The patient denies psychiatric medications, denies depression, and denies voices, denies substance abuse. Endocrine: The patient denies thyroid disorders, denies diabetes, and denies hormonal problems. Hematologic: The patient denies a history of bruising, denies bleeding, and denies anemia, denies blood clots. Infections: The patient denies a history of measles and mumps, denies rheumatic fever, and denies sexually transmitted diseases. Musculoskeletal: The patient NOTES back pain/injury, NOTES back problems, denies sciatica, denies knee/foot trouble, NOTES arthritis, or denies gout. When was patient's last Mammogram screening? N/A Last Colonoscopy: 2018 Angela Craven documented in this encounter [facility] Evaluation + Plan note Future Appointments Appointment Date:06/01/2023 07:00:00 AM Scheduled Provider:JORGE BRAY APRN, CNP Location:[facility] Appointment Type:PC OV Follow Up Future Scheduled TestsHelicobacter Pylori Antibody 05/11/23elicobacter Pylori Antibody 05/13/23XR Upper GI 05/11/23 [facility] Diagnosis Mediastinal mass- Primary Swelling, mass, or lump in chest [facility]* Diagnosis Malignant neoplasm of mediastinum (HCC)- Primary Malignant neoplasm of mediastinum, part unspecified [facility] N[facility] No data available for this section [facility] Hospital Discharge instructions No data available for this section [facility] Progress note No data available for this section [facility] Summary Purpose Family History No Family History Records FoundNo Family History Records FoundNo Family History Records Found No data available for this section No Family History Records Found Advance Directives No Advanced Directives Records FoundNo Advanced Directives Records FoundNo Advanced Directives Records FoundNo Advanced Directives Records Found Reason for Referral Specialty Diagnoses / Procedures Referred By Sumanth t Referred To Contact CT IMAGING Diagnoses Malignant neoplasm of mediastinum (HCC) Procedures CT CHEST WO IVCON DIAGNOSTIC COMPUTED TOMOGRAPHY THORAX W/O CNTRST Marie Mukherjee, MACHINE SETUP OPERATOR.INVENTORY ANALYST [address] [facility] [employer], [address] [place] [address] Ct Imaging Referral ID Status Reason Start Date Expiration Date Visits Requested Visits Authorized [id number] Pending Review Auto-Generat ed Referral 2 03/25/2023 1 1 Additional Source Comments Source Comments (unrecognize d section and content) In the event this informatio n is protected by the Federal Confidentiality of Alcohol and Drug Abuse Patient Records regulations: The Federal rules restrict any use of the information to criminally investigate or prosecute any alcohol or drug abuse patient.[facility] the event this information is protected by the Federal Confidentiality of Alcohol and Drug Abuse Patient Records regulations: The Federal rules restrict any use of the information to criminally investigate or prosecute any alcohol or drug abuse patient.[facility] the event this information is protected by the Federal Confidentiality of Alcohol and Drug Abuse Patient Records regulations: The Federal rules restrict any use of the information to criminally investigate or prosecute any alcohol or drug abuse patient.[facility] the event this information is protected by the Federal Confidentiality of Alcohol and Drug Abuse Patient Records regulations: The Federal rules restrict any use of the information to criminally investigate or prosecute any alcohol or drug abuse patient.[facility] the event this information is protected by the Federal Confidentiality of Alcohol and Drug Abuse Patient Records regulations: The Federal rules restrict any use of the information to criminally investigate or prosecute any alcohol or drug abuse patient.[facility] Reason for Visit (unrecogniz ed section and content) Reason Comments Appointment Appointment Reason Comments New Patient Evaluation Rfd by Dr. Mccartney for benign neoplasm of mediastinum Reason Comments Appointment PP 6 Month F/UP Care Teams (unrecognized sec tion and content) Director Case Management Relationship Specialty Start Date End Date Jesus Alberto Stewart, PCP - General Family Practice 08/17/18 Chon Sierra [address] [place] [address] Referring Ent - Otolaryngology 07/21/18 Director Case Management Relationship Specialty Start Date End Date Jorge Bray, INVENTORY ANALYST [address] [place] [address] PCP - General Family Practice 10/23/21 [facility] [address] [place], [place] [id number] Referring Ent - Otolaryngology 07/21/18 Director Case Management Relationship Specialty Start Date End Date Jorge Bray, INVENTORY ANALYST [address] [place] [address] PCP - General Family Medicine 10/23/21 BradChon watt [address] [place], [place] [id number] Referring Ent - Otolaryngology 07/21/18 Director Case Management Relationship Specialty Start Date End Date Jorge Bray, INVENTORY ANALYST [address] [place] [address] PCP - General Family Medicine 10/23/21 BradChon watt [address] [place], [place] [id number] Referring Ent - Otolaryngology 07/21/18 (unrecognized sect ion and content) No Status Records FoundNo Status Records FoundNo Status Records FoundNo Status Records Found INFORMATION SOURCE (unrecogn ized section and content) DATE CREATED AUTHOR AUTHOR'S ORGANIZ ATION 02/24/2022 [facility] DATE CREATED AUTHOR AUTHOR'S ORGANIZ ATION 04/14/2022 [facility] DATE CREATED AUTHOR AUTHOR'S ORGANIZ ATION 05/16/2023 [facility] FOR RECORDS PERTAINING TO PATIENTS WHO ARE OR HAVE BEEN ENROLLED IN A CHEMICAL DEPENDENCY/SUBSTANCEABUSE PROGRAM, SOME INFORMATION MAY BE OMITTED. This clinical summary was aggregated from multiple sources. Caution should be exercised in using it in the provision of clinical care. This summary normalizes information from multiple sources, and as a consequence, information in this document may materially change the coding, format and clinical context of patient data. In addition, data may be omitted in some cases. CLINICAL DECISIONS SHOULD BE BASED ON THE PRIMARY CLINICAL RECORDS. [facility]. provides no warranty or guarantee of the accuracy or completeness of information in this document.
== END | disposition home or self-care (01) ==
LOC: RAD 08:03
PROVIDERS: PCP Nurse Practitioner Family; Visit Provider Nurse Practitioner Family
DX: R10.13 Epigastric pain (principal); K27.3 Acute peptic ulcer, site unspecified, without hemorrhage or perforation
CPT/HCPCS: 74246

== ENCOUNTER 2023-07-19 09:32 | Day surgery (SDC) | payer OTHER, SELFPAY ==
--- NOTE | 2023-07-19 | GASB_PTH ---
PATIENT: MONICA YORK LOC: EN U#:[id number] AGE/SX: 53/M ROOM: RE07/19/[address]: Dr. Toribio Barrientos MD : 1970 BED: DIS: 07/19/2023 SPEC #: [id number] RECD: 07/19/23 13:51 STATUS: PACHECO NEPTALI #: [id number] DEMARIO: 07/19/23 00:[address]: Toribio Barrientos DEPT: SURGICAL PATHOLOGY RECD BY: Yrn Haro ENTERED: 07/19/23 13:51 SP TYPE: Gastric Bx OTHR DR: Jorge Bray, PHOTO OPTICS TECHNICIAN-C Tissues: A - Gastric mucous membrane B - Gastric fundus C - Esophageal mucous membrane D - Esophageal mucous membrane Procedures: Surgery Specimen Level IV HEADER OPERATION: EGD with biopsy and polypectomy PRE-OP DIAGNOSIS: Acid reflux, GERD with esophagus TISSUE SUBMITTED: A- Antrum biopsy for h. pylori and path, B- Fundic polyp, C- Distal esophagus biopsy, D- Proximal esophagus biopsy MICROSCOPIC DIAGNOSIS A. Gastric antrum, biopsy; Mild chronic gastritis. B. Fundic polyp, biopsy; Fundic gland polyp. C. Distal esophagus, biopsy; Gastroesophageal junctional biopsy with chronic inflammation. 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 Changes of reflux. No evidence of dysplasia. See comment. D. Proximal esophagus, biopsy; Gastroesophageal junctional biopsy with chronic inflammation. Focal benign lymphoid aggregates. See comment. Dylan/ 07/20/2023 COMMENT A. The results of immunohistochemistry for Helicobacter pylori will be reported separately ([id number]). C. Immunohistochemistry ([id number]) for P53 and Ki-67 will be performed and results will be reported separately. Alcian blue/PAS stain with matched control supports the above diagnosis. D. Immunohistochemistry ([id number]) supports the above diagnosis. MICROSCOPIC DESCRIPTION Slides are reviewed. GROSS DESCRIPTION A. Received in fixative is one container labeled with the patient's name and designated Antrum biopsy. The specimen consists of one irregular fragment of light lopez soft tissue that measures 0.3 x 0.3 x 0.1 cm. The specimen is totally submitted in one cassette. B. Received in fixative is one container labeled with the patient's name and designated Fundic polyp. The specimen consists of one irregular fragment of light lopez soft tissue that measures 0.3 x 0.3 x 0.1 cm. The specimen is totally submitted in one cassette. C. Received in fixative is one container labeled with the patient's name and designated Distal esophagus biopsy. The specimen consists of multiple irregular fragments of light lopez soft tissue that in aggregate measure 1.0 x 0.5 x 0.1 cm. The specimen is totally submitted in one cassette. D. Received in fixative is one container labeled with the patient's name and designated Proximal esophagus biopsy. The specimen consists of multiple irregular fragments of light lopez soft tissue that in aggregate measure 1.5 x 0.5 x 0.1 cm. The specimen is totally submitted in one cassette. SJ/ 07/19/23 TC:3 CPT: 02593,30431t5
[2023-07-19 09:44] VITALS: BP 131/86; PULSE 60; RESP 16; TEMP 36.3; O2SAT 100; BMI 28.3
[2023-07-19] MEDS: Lactated Ringers 1,000 ML 15 ML IV (09:50)
--- NOTE | 2023-07-19 09:58 | PCM.HP.BLA ---
History and Physical Date of Admission: 07/19/23 Visit Reasons: Gastroesophageal reflux disease (GERD) Chief Complaint: GERD [employer] And [employer] Counselor Required: No Is patient in pain?: No Allergies No Known Allergies Allergy (Verified 06/24/23 15:19) Medications acetaminophen 500 mg tablet 500 mg PO Q4H PRN PRN Pain Score 1-5/10 06/23/19 [Rx Confirmed 06/24/23] famotidine 40 mg tablet mg PO 06/24/23 [History Confirmed 06/24/23] PFSH Medical History (Updated 06/24/23 @ 15:[address] Toribio Barrientos MD) Acid reflux Difficulty swallowing Fatigue GERD with esophagitis Pancreatic cyst Screening for intestinal cancer Surgical History History of esophagogastroduodenoscopy (EGD) History of left knee surgery Hx of right inguinal hernia repair Hx of tonsillectomy Family History Father Cancer Prostate Social History (Updated 06/13/18 @ 17:[address] Toribio Barrientos MD) Smoking Status: Former smoker second hand exposure: No alcohol intake: current alcohol intake frequency: holidays/special occasions only substance use type: does not use caffeine: Yes what type of physical activity do you participate in: walking frequency: 5-6 times per week HPI HPI HPI: 53-year-old gentleman is being referred by Dr. Burton Bray OFFICE LEAD-C for surgical consultation regarding a history of Agustin's esophagus and gastroesophageal reflux disease. Written copy my surgical consult recommendations will return to him. It is of note that previously on June 06, 2018 I assisted him with a combined upper and lower endoscopy. He has had a long-term history of chewing tobacco. There was a small hiatal hernia with reflux changing is at the EG junction. Biopsies showed mild chronic gastritis and esophagitis at the EG junction and even the proximal esophagus had evidence of reflux. H. pylori was negative. It is of note that there was no Agustin's esophagus identified at that time. I did discuss with him recommendations for at least consideration of pursuing esophageal manometry and workup for a surgical reflux procedure. The patient stopped chewing tobacco for a year and a half but then returned to doing it with COVID and nothing else to do. He his mother actually has just had had neck surgery for malignancy. The patient for the past 5 years has been on Prilosec 20 mg daily. He recently was attempted to be changed over to famotidine 40 mg daily over the past month but he states that that is not as effective as the Prilosec. He is having more epigastric discomfort and more reflux symptoms. ROS General General: No weight change, appetite, fatigue, colon cancer, breast cancer or weakness HEENT HEENT: No difficulty swallowing, eye injury, eye surgery, swollen glands or hoarseness Endo Endocrine: No thyroid disease, diabetes mellitus, thyroid cancer, Hair loss, heat intolerance or cold intolerance Breast Breast: No left breast lump, right breast lump, nipple discharge, breast pain, abnormal mammogram, abnormal US or breast enlargement Musc Musculoskeletal: Yes back problems and arthritis; No rheumatoid arthritis, gout or joint pain Cardio Cardiovascular: No murmur, pacemaker, heart disease, atrial fibrillation, high blood pressure, heart attack, heart stent, palpitations, shortness of breat with exertion or chest pain Psych Psychiatric: No depression, anxiety or hearing voices Resp Respiratory: No shortness of breath, No sleep apnea, No cough, No COPD, No asthma, No emphysema and No wheezing Gastro Gastrointestinal: No abdominal pain, No nausea or vomiting, No diarrhea, No constipation, No blood in stool, Yes acid reflux, Yes hemorrhoids, No ulcers, No gallbladder problem and No black,tarry stools Juan Hematologic: No blood thinners, No blood disorders, No bleeding, No anemia and No blood clots Neuro Neurologic: No system reviewed and no additional complaints, except as documented, No as per HPI, No abnormal gait, No abnormal hearing, No abnormal movements, No abnormal speech, No behavioral changes, No burning sensations, No confusion, No convulsions, No disequilibrium, No dizziness, No localized weakness, No frequent falls, No headache(s), No lack of coordination, No loss of vision, No memory loss, No numbness, No other visual disturbances, No radicular pain, No restless legs, No sensory deficit, No syncope, No tingling, No tremor(s), No weakness and No other Exam Const General: cooperative, healthy appearing, comfortable and no acute distress HENIA Head: normal to inspection Eyes General: appearance normal, both eyes and all related structures Chest Chest palpation & inspection: normal inspection of the chest Resp Effort & Inspection: normal respiratory effort Auscultation: clear to auscultation bilaterally Cardio Rate: regular rate Rhythm: regular rhythm GI Inspection: normal to inspection Palpation: soft and no hepatosplenomegaly Musc Cervical Spine: normal cervical lordosis Skin General: no rashes or lesions noted Neuro General: patient alert, patient awake and patient oriented x3 Extrem General: no calf tenderness Psych Appearance: grossly normal Assessment and Plan Assessment and Plan (1) Acid reflux: Status: Acute Qualifiers: Esophagitis presence: esophagitis presence not specified Qualified Code(s): K21.9 - Gastro-esophageal reflux disease without esophagitis Plan: Copy: KEVIN VásquezC Toribio Barrientos M.D., F.A.C.S. (2) GERD with esophagitis: Status: Acute Qualifiers: Esophagitis bleeding: without hemorrhage Qualified Code(s): K21.00 - Gastro-esophageal reflux disease with esophagitis, without bleeding Plan: I recommended the patient a esophagogastroduodenoscopy with anticipated biopsy. He has symptomatic reflux particularly converted over to an H2 shey instead of his PPI. He has been on PPIs now for over 5 years. He is aware of the technique, benefit, risk, alternatives. Pending the findings may again want to try to encourage him to consider esophageal manometry leading up to potential surgical reflux procedure. He has had an opportunity to ask and have questions answered. We will schedule and proceed at his discretion. I appreciate the ongoing opportunity of assisting with the surgical care. Toribio Barrientos M.D., F.A.C.S. I have examined the patient and the H&P has been reviewed. There are no clinical changes since date of exam. Toribio Barrientos M.D., F.A.C.S.
--- NOTE | 2023-07-19 10:30 | IMM_PTH ---
PATIENT: MONICA YORK LOC: EN U#:[id number] AGE/SX: 53/M ROOM: RE07/19/[address]: Dr. Toribio Barrientos MD : 1970 BED: DIS: 07/19/2023 SPEC #: [id number] RECD: 07/19/23 14:29 STATUS: PACHECO REHiram #: [id number] DEMARIO: 07/19/23 10:[address]: Toribio Barrientos DEPT: IMMUNOHISTOCHEMISTRY RECD BY: Gladys Robles ENTERED: 07/19/23 14:30 SP TYPE: IMMUNO OTHR DR: Jorge Bray, RADIO COMMUNICATIONS MECHANICIAN-C Tissues: A - Stomach, NOS Procedures: H Pylori (initial) P53 (initial) CD20 (add) CD45 (add) CD5 (add) CD79A (add) KI-67 (add) CD3 (initial) PHYSICIAN & INSTITUTION [facility] [phone] SPECIMEN INFORMATION: Tissue Source: A - Antrum, C - Distal esophagus, D - Proximal esophagus Clinical Info: Acid reflux, GERD, esophagitis Specimen Number: [id number] A, C & D CPT code: 98915 x3, 60998 x5 METHODOLOGY: Deparaffinized sections of prefer/formalin-fixed tissue or PAP/DQ stained slides are incubated with monoclonal/polyclonal antibodies/oligonucleotide probes. Localization is made via biotin free immunoperoxidase method. Appropriate controls are performed and reacted as expected. Results on target cell population are indicated in the following table: RESULTS: ANTIBODY / CLONE RESULT Block A H Pylori (polyclonal) negative Block C P53 (DO-7) positive, wild type pattern Ki-67 (30-9) positive, low Block D CD3 (PS1) positive CD5 (SP10) positive CD20 (L26) positive CD45 (RP2/18) positive CD79a (11E3) positive These tests were developed and their performance characteristics determined by [facility]. They may not have been cleared or approved by the U.S. Food and Drug Administration. The FDA has determined that such clearance or approval is not necessary. The above immunohistochemical/dualISH markers are ordered and reviewed by the Pathologist. INTERPRETATION: A. Antrum, biopsy: Negative for Helicobacter pylori organisms. C. Distal esophagus, biopsy: No evidence of dysplasia. D. Proximal esophagus, biopsy: Polytypic (benign) lymphoid aggregates AM/mr 07/21/2023
[2023-07-19 11:29] VITALS: BP 101/56; BP 131/86; PULSE 63; RESP 16; O2SAT 96
[2023-07-19 11:30] VITALS: BP 110/78; BP 131/86; PULSE 59; RESP 16; O2SAT 95
[2023-07-19 11:35] VITALS: BP 111/65; BP 131/86; PULSE 59; RESP 16; O2SAT 94
--- NOTE | 2023-07-19 11:36 | OP.CCLET_ITS ---
07/19/2023 Jorge Bray Re : Upper GI endoscopy procedure for Jonah Cdaenar Asa This procedure was performed on Wednesday, July 19, 2023. My impressions and recommendations are as follows: Impressions : - Esophageal mucosal changes suspicious for long-segment Agustin's esophagus. Biopsied. - Esophageal mucosal changes suspicious for short-segment Agustin's esophagus, suggestive of short-segment Agustin's esophagus. Biopsied. - Erythematous mucosa in the antrum. Biopsied. - A few gastric polyps. Resected and retrieved. - Normal examined duodenum. Recommendations : - Discharge patient to home. - Resume previous diet. - Continue present medications. - Return to my office in 2 weeks. I will recommend esophageal manometry and office follow-up. Consideration for surgical reflux procedure My findings are described in the full procedure note, which is enclosed. If I can be of further assistance, please feel free to contact me at Doctor phone number(s): Work: . Sincerely, Toribio Barrientos MD 07/19/2023 11:35:37 AM This report has been signed electronically.
--- NOTE | 2023-07-19 11:36 | OP.EGD_ITS ---
Patient Name: Jonah Yousif Procedure Date: 07/19/2023 11:04 AM Date of : 1970 Age: 53 Procedure: Upper GI endoscopy Indications: Surveillance for malignancy due to personal history of Agustin's esophagus Providers: Toribio Barrientos MD Medicines: See the Anesthesia note for documentation of the administered medications Complications: No immediate complications. Procedure: Pre-Anesthesia Assessment: - Prior to the procedure, a History and Physical was performed, and patient medications and allergies were reviewed. The patient's tolerance of previous anesthesia was also reviewed. The risks and benefits of the procedure and the sedation options and risks were discussed with the patient. All questions were answered, and informed consent was obtained. Prior Anticoagulants: The patient has taken no anticoagulant or antiplatelet agents. ASA Grade Assessment: II - A patient with mild systemic disease. After reviewing the risks and benefits, the patient was deemed in satisfactory condition to undergo the procedure. After obtaining informed consent, the endoscope was passed under direct vision. Throughout the procedure, the patient's blood pressure, pulse, and oxygen saturations were monitored continuously. The Endoscope was introduced through the mouth, and advanced to the second part of duodenum. The upper GI endoscopy was accomplished without difficulty. The patient tolerated the procedure well. Scope In: 11:09:32 AM Scope Out: 11:21:55 AM Total Procedure Duration Time 0 hours 12 minutes 23 seconds Findings: There were esophageal mucosal changes suspicious for long-segment Agustin's esophagus present in the upper third of the esophagus. The maximum longitudinal extent of these mucosal changes was 5 cm in length. Mucosa was biopsied with a cold forceps for histology in a targeted manner in the upper third of the esophagus. There were esophageal mucosal changes suspicious for short-segment Agustin's esophagus, suggestive of short-segment Agustin's esophagus present in the lower third of the esophagus. The maximum longitudinal extent of these mucosal changes was 2 cm in length. Mucosa was biopsied with a cold forceps for histology. Diffuse mildly erythematous mucosa without bleeding was found in the gastric antrum. Biopsies were taken with a cold forceps for histology. A few sessile polyps with no bleeding and no stigmata of recent bleeding were found in the gastric fundus. The polyp was removed with a cold biopsy forceps. Resection and retrieval were complete. The examined duodenum was normal. Impression: - Esophageal mucosal changes suspicious for long-segment Agustin's esophagus. Biopsied. - Esophageal mucosal changes suspicious for short-segment Agustin's esophagus, suggestive of short-segment Agustin's esophagus. Biopsied. - Erythematous mucosa in the antrum. Biopsied. - A few gastric polyps. Resected and retrieved. - Normal examined duodenum. Recommendation: - Discharge patient to home. - Resume previous diet. - Continue present medications. - Return to my office in 2 weeks. I will recommend esophageal manometry and office follow-up. Consideration for surgical reflux procedure Procedure Code(s): --- Professional --- 29052, Esophagogastroduodenoscopy, flexible, transoral; with biopsy, single or multiple Diagnosis Code(s): --- Professional --- K22.70, Agustin's esophagus without dysplasia K31.89, Other diseases of stomach and duodenum K31.7, Polyp of stomach and duodenum CPT copyright 2021 [employer]. All rights reserved. The codes documented in this report are preliminary and upon senior manager quality assurance review may be revised to meet current compliance requirements. Toribio Barrientos MD 07/19/2023 11:35:37 AM This report has been signed electronically. Number of Addenda: 0 Note Initiated On: 07/19/2023 11:04 AM
[2023-07-19 11:40] VITALS: BP 110/68; BP 131/86; PULSE 54; RESP 16; TEMP 36.1; O2SAT 96
[2023-07-19 11:51] VITALS: BP 131/86
== END 2023-07-19 12:03 | disposition home or self-care (01) ==
LOC: EN 09:34 → AC 09:35
PROVIDERS: PCP Nurse Practitioner Family; Referring Provider Nurse Practitioner Family; Visit Provider Surgery
PROC: 0DJ08ZZ Inspection of Upper Intestinal Tract, Via Natural or Artificial Opening Endoscopic (ICD-10-PCS; CPT 43235; principal; 2023-07-19 10:25)
DX: K21.00 Gastro-esophageal reflux disease with esophagitis, without bleeding (principal); K31.7 Polyp of stomach and duodenum; Z87.891 Personal history of nicotine dependence; Z79.899 Other long term (current) drug therapy; K22.70 Barrett's esophagus without dysplasia; K31.89 Other diseases of stomach and duodenum; K29.50 Unspecified chronic gastritis without bleeding
CPT/HCPCS: 43239; 88305; 88341; 88342; J7120; J2405

== ENCOUNTER → 2023-07-30 | Outpatient (CLI) | payer OTHER, SELFPAY ==
--- NOTE | 2023-07-30 06:44 | MRI_ITS ---
EXAM: MR HEAD WITHOUT AND WITH INTRAVENOUS CONTRAST CLINICAL INDICATION: HEARING LOSS LEFT, LEFT FACIAL PAIN TECHNIQUE: Multiplanar and multisequence MR images of the brain were obtained without and with intravenous contrast. Contrast: IV 19 cc clariscan COMPARISON: March 01, 2017 FINDINGS: BRAIN AND EXTRA-AXIAL SPACES: Small high signal focus in the high right frontal lobe white matter on axial inversion recovery images appear similar to 2017. No intra- or extra-axial hemorrhage. No evidence of acute infarct. There is preservation of the clarke/white matter interface. Ventricles are appropriate for age. No hydrocephalus. Basal cisterns are patent. No visible mass or suspicious enhancement. Unremarkable cerebellopontine angles and internal auditory canals. SELLA: Unremarkable. Normal sella turcica, pituitary gland, infundibular stalk, optic chiasm and hypothalamus. AUDITORY SYSTEM: See above. BONES/JOINTS: Unremarkable. No discrete lytic or blastic abnormalities. SINUSES: Mild mucosal thickening in the maxillary sinuses. MASTOID AIR CELLS: Unremarkable as visualized. Clear. ORBITS: Unremarkable as visualized. Both globes, extraocular muscles, optic nerves and retrobulbar fat appear unremarkable. VASCULATURE: Unremarkable as visualized. Normal flow voids in the major intracranial circulation. MRI/Brain W/WO Contrast IMPRESSION: No acute findings in the head/brain. Minimal chronic sinusitis. Electronically Signed: Jacinta Camargo MD at 0:19 EDT ,
== END | disposition home or self-care (01) ==
LOC: MRI 06:34
PROVIDERS: PCP Nurse Practitioner Family; Referring Provider Otolaryngology; Visit Provider Otolaryngology
DX: J32.9 Chronic sinusitis, unspecified (principal); H91.92 Unspecified hearing loss, left ear; R51.9 Headache, unspecified
CPT/HCPCS: 70553; A9575

== ENCOUNTER 2023-08-06 08:08 | Day surgery (SDC) | payer OTHER, SELFPAY ==
[2023-08-06] MEDS: Lidocaine Jelly 2% 20 ML Syringe (URO-JET) 1 APPLIC (08:28)
[2023-08-06 08:41] VITALS: BP 137/90; PULSE 58; RESP 18; O2SAT 98
--- NOTE | 2023-08-06 08:48 | SUR.OPER ---
ATTEMPTED CATHETER INTUBATION TO RT NARE. CATHETER INSERTED APPROX TO BACK OF THROAT, PT UNABLE TO TOLERATE, PULLING AWAY AND GAGGING NOTED. PT DECLINES SECOND ATTEMPT. PT STATES HE DOES NOT WANT TO PROCEED WITH THIS TEST. THIS NURSE WILL NOTIFY DR. URBAN'S OFFICE.
== END 2023-08-06 23:59 | disposition home or self-care (01) ==
LOC: SDC 08:09
PROVIDERS: PCP Nurse Practitioner Family; Visit Provider Surgery
PROC: F00ZJWZ Instrumental Swallowing and Oral Function Assessment using Swallowing Equipment (ICD-10-PCS; CPT 43235; principal; 2023-08-06 07:55)
DX: Z53.29 Procedure and treatment not carried out because of patient's decision for other reasons (principal)
CPT/HCPCS: 91010

== ENCOUNTER → 2023-12-22 | Outpatient (CLI) | payer OTHER, SELFPAY | END | disposition home or self-care (01) | LOC: LABSPEC 15:24 | PROVIDERS: PCP Nurse Practitioner Family; Referring Provider Otolaryngology; Visit Provider Otolaryngology | DX: J02.9 Acute pharyngitis, unspecified (principal) | CPT/HCPCS: 87070 ==

== ENCOUNTER → 2024-01-18 | Outpatient (CLI) | payer OTHER, SELFPAY ==
--- NOTE | 2024-01-18 13:59 | RAD_ITS ---
STUDY: X-RAY CHEST REASON FOR EXAM: Male, 53 years old. Cough. TECHNIQUE: Frontal and lateral views of the chest. COMPARISON: Chest CT dated October 08, 2021 FINDINGS: The lungs are clear and expanded. There is no demonstrated pleural abnormality. Normal size heart. Normal mediastinum and wilfredo. Normal visualized pulmonary arteries. Mild aortic tortuosity with calcification. Normal visualized thoracic spine. Normal visualized ribs, clavicles, and shoulders. No abnormality of the visualized soft tissue structures of the upper abdomen. RAD/Chest PA and Lateral IMPRESSION: Mild aortic tortuosity with calcification. No other abnormality. Electronically Signed: Andrey Walker MD at 15:21 EDT ,
== END | disposition home or self-care (01) ==
LOC: MTRAD 13:56
PROVIDERS: PCP Nurse Practitioner Family; Referring Provider Internal Medicine Gastroenterology; Visit Provider Internal Medicine Gastroenterology
DX: R05.9 Cough, unspecified (principal)
CPT/HCPCS: 71046

== ENCOUNTER → 2024-03-20 | Outpatient (CLI) | payer OTHER, SELFPAY ==
--- NOTE | 2024-03-20 07:14 | EKG12_ITS ---
Test Reason : PREOP Blood Pressure : */* mmHG Vent. Rate : 53 BPM Atrial Rate : 53 BPM P-R Int : 132 ms QRS Dur : 88 ms QT Int : 454 ms P-R-T Axes : 76 -17 15 degrees QTcB Int : 426 ms Sinus bradycardia Otherwise normal ECG Confirmed by CHERISE CERNA, GERTRUDIS ([id number]), sound editor MANJIT HAM ([id number]) on 03/20/2024 9:59:09 AM Referred By: Lamberto Wynn Confirmed By: GERTRUDIS LUONG MD
[2024-03-20 07:45] LABS: Absolute Lymphocyte Count 1.58 X10^3/uL (0.83-4.51); Absolute Neutrophil Count 2.3 X10^3/uL (2.0-7.7); Basophil# 0.03 X10^3/uL; Basophil% 0.7 % (0-1); Eosinophil# 0.15 X10^3/uL; Eosinophils% 3.3 % (0-5); Hematocrit 40.7 % (40-54); Hemoglobin 12.8 g/dL (13.0-16.5); Lymphocyte # 1.58 X10^3/ul (0.83-4.51); Mean Corp Hgb Conc 31.4 g/dL (32-36); Mean Corpuscular Hgb 26.9 pg (27.0-32.0); Mean Corpuscular Volume 85.5 fL (80-94); Mean Platelet Vol. 10.1 fl (6.2-12.0); Monocyte# 0.49 X10^3/uL; Monocyte% 10.9 % (0-10); NRBC Flagged by Analyzer 0 % (0-5); Neutrophil # 2.25 X10^3/uL (2.7-7.7); Neutrophil % 49.9 % (47-70); Platelet Count 202 K/mm3 (150-450); RBC Distribution Width CV 13.3 % (11.6-14.6); RBC Distribution Width SD 41.2 fl (35.1-43.9); Red Blood Count 4.76 M/mm3 (4.6-6.2); White Blood Count 4.5 K/mm3 (4.4-11.0)
[2024-03-20 07:54] LABS: Anion Gap 5 (5-15); BUN 15 mg/dL (7-18); Calcium,Total 8.8 mg/dL (8.5-10.1); Chloride 110 mmol/L (98-107); Creatinine, Serum 1.25 mg/dL (0.70-1.30); EST Glomerular Filtration Rate 64 mL/min (>60); Est Glom Filt Rate - Afr Amer 77 mL/min (>60); Glucose 120 mg/dL (74-106); Potassium 4.1 mmol/L (3.5-5.1); Sodium Level 143 mmol/L (136-145)
== END | disposition home or self-care (01) ==
LOC: PSN 07:12
PROVIDERS: PCP Nurse Practitioner Family; Referring Provider Student in an Organized Health Care Education/Training Program; Visit Provider Student in an Organized Health Care Education/Training Program
DX: Z01.818 Encounter for other preprocedural examination (principal); Z01.810 Encounter for preprocedural cardiovascular examination
CPT/HCPCS: 36415; 80048; 85025; 93005

== ENCOUNTER 2024-03-28 10:18 | Emergency (ER) | payer OTHER, SELFPAY ==
[2024-03-28 10:18] VITALS: BP 149/92; PULSE 82; RESP 14; TEMP 36.2; O2SAT 99
--- NOTE | 2024-03-28 10:55 | VDLE_ITS ---
Reason For Study: RLE SWELLING AND PAIN RIGHT LEFT GSV is normal. CFV is compressible, spontaneous, phasic, CFV is compressible, spontaneous, phasic, competent, and demonstrates normal competent and demonstrates normal augmentation. augmentation. FV is compressible, spontaneous, phasic, competent and demonstrates normal augmentation. POP V is compressible, spontaneous, phasic, competent and demonstrates normal augmentation. T/P Trunk is compressible. PTV is compressible. RT PerV is compressible. NON-VASCULAR STRUCTURE noted in the RT anterior to medial knee cap area. Procedure This is a venous duplex using B-mode, color flow and spectral Doppler. Exam performed portable in ED. A preliminary report was called and/or faxed to ED. VL/Venous Duplex US, Unilateral Interpretation Summary Deep veins of the right lower extremity are patent and compressible segmentally . There is no evidence of right lower extremity deep vein thrombosis. The right great sapheno us vein appears patent and compressible segmentally. Non-vascular structure noted anterior to medial knee cap area. Ordering Physician: Gilbert Lawrence Referring Physician: Jorge Bray Performed By: Bekah Gomez, BRADLEY, RVT
--- NOTE | 2024-03-28 10:55 | ED.VIS.LOWEX ---
HPI History of Present Illness Chief Complaint: Lower Extremity Injury Informant: patient and spouse/S.O. Narrative Narrative: 53-year-old male presenting to the emergency room with a chief complaint of knee and calf pain. Patient underwent arthroscopic knee surgery with Dr. Wynn on Wednesday. He removed his neoprene sleeve today and states that all of a sudden he developed pain and swelling states that he became pale and sweaty and felt like he may pass out. After 5 or 10 minutes the symptoms improved except for the swelling and pain. He has had prior DVT postoperatively in the past. Patient notes that he has pain with movement of the knee now. [facility] Medical History Smokeless tobacco use GERD with esophagitis Pancreatic cyst Screening for intestinal cancer Difficulty swallowing Fatigue Acid reflux Home Medications ?Medication ?Instructions ?Recorded ?Last Taken ?Type acetaminophen 500 mg tablet 500 mg PO Q4H PRN PRN Pain Score 06/23/19 Unknown Rx 1-09/09 diclofenac sodium 75 mg 75 mg PO BID 09/01/23 Unknown History tablet,delayed release albuterol sulfate 90 mcg/actuation 2 puff inhalation Q6H PRN 11/10/23 Unknown Rx aerosol inhaler shortness of breath or wheezing #6.7 grams beclomethasone dipropionate 80 1 inh inhalation Q12H 1 month 11/10/23 Unknown Rx mcg/actuation HFA breath activated #10.6 grams aerosol famotidine 40 mg tablet 40 mg PO QHS 11/10/23 Unknown History omeprazole 20 mg capsule,delayed 20 mg PO BID #60 caps 11/10/23 Unknown Rx release Allergy/AdvReac Type Severity Reaction Status Date / Time No Known Allergies Allergy Verified 03/28/24 10:18 Family History Father Cancer Prostate Surgical History History of esophagogastroduodenoscopy (EGD) History of left knee surgery Hx of right inguinal hernia repair Hx of tonsillectomy Social History Smoking Status: Never smoker second hand exposure: No alcohol intake: current alcohol intake frequency: holidays/special occasions only substance use type: does not use caffeine: Yes what type of physical activity do you participate in: walking frequency: 5-6 times per week ROS ROS ED Constitutional Constitutional ED: Denies chills or weight loss Eyes Eyes: Denies change in vision or diplopia ENT ENT ED: Denies ear pain, rhinorrhea or sore throat Cardiovascular Cardiovascular: Reports other Details: Near syncopal ; Denies chest pain, orthopnea, palpitations or racing heartbeat Respiratory/Chest Respiratory/Chest: Denies cough, dyspnea or orthopnea Gastrointestinal Gastrointestinal: Denies abdominal pain, diarrhea, nausea or vomiting Genitourinary Genitourinary ED: Denies dysuria, hematuria or urinary frequency Musculoskeletal Musculoskeletal: Reports other Details: See history of present illness ; Denies arthralgias or myalgias Integumentary Denies abscess or rash Neurologic Neurologic: Denies headache(s) or weakness Psychiatric Psychiatric: Denies anxiety, depression, suicidal ideation or suicidal thoughts Endocrine Endocrinology: Denies polydipsia, polyphagia or polyuria Allergic/Immunologic Allergic/Immunologic ED: Denies mouth swelling, tongue swelling or urticaria EXAM Physical Exam Const Vital Signs: 03/28/24 10:18 03/28/24 12:17 Temperature 97.2 F L 97.2 F L Temperature Source Temporal Pulse Rate 82 82 Respiratory Rate 14 14 Blood Pressure 149/92 H 145/89 H Blood Pressure Mean 111 107 Pulse Ox 99 99 Oxygen Delivery Method Room Air Positive well nourished and well developed General Appearance ED: well developed and NAD HEENT Reports normocephalic, head/scalp atraumatic and moist mucous membranes Eyes PERRL and EOMs intact bilaterally Neck no lymphadenopathy, supple and no JVD Resp normal respiratory effort and clear to auscultation bilaterally Cardio regular rate, regular rhythm and no murmurs GI normal to inspection, nondistended, normoactive bowel sounds and non-tender Palpation: soft Back/Spine no CVA tenderness and normal ROM Extremity Extremity Narrative: There is swelling of the right knee. There new surgical incisions with a mild degree of redness around them but not circumferential. In between the 2 incisions appears to be more of a traumatic red discoloration. Limited range of motion secondary to pain. There is no significant distal swelling. Neurovascular appears intact. No palpable cords. The calf is mildly tender. General Extremety ED: Negative for edema General Extremity: Negative for edema Neuro oriented x3 and CN's II-XII intact bilaterally Sensorium / Orientation: alert Motor Exam: strength 5/5 throughout Psych mental status grossly normal Mood & Affect: Negative for depressed or tearful Skin no rashes or lesions noted and no wounds MDM MDM MDM Narrative Medical decision making narrative: Differential diagnosis includes but not limited to DVT joint effusion postoperative pain joint infection Duplex ultrasound is negative for DVT. My independent interpretation of the plain films is joint effusion with soft tissue swelling. Small foci of air most likely related to postoperative changes is noted. Clinically I do not see any obvious signs of infection other than the swelling which I think is most likely postoperative. There is no evidence of DVT. I spoke with the patient's surgeon Dr. Wynn. If he can use his KHADIJAH hose that would be optimal. Would recommend continued postoperative care follow-up as scheduled History & Record Review Discussion w/independent historian: Patient and Significant other Radiography Diagnostic Testing: Clinical Impression(s) from Imaging Studies Knee X-Ray 03/28/24 11:30 IMPRESSION: Moderate to large right knee joint effusion, containing a small air bubble. Intra-articular air could be related to recent surgical intervention, penetrating trauma, or gas-forming infection. Prepatellar soft tissue swelling. Electronically Signed: Romario Carson MD at 11:41 EST Reading Location ID and State: [facility] / [place] , Service support , Management Discussion w/another healthcare provider: Field Technical Assistant (Dr. Wynn) Discharge Plan Triage Chief Complaint: Lower Extremity Injury ED Provider: Gilbert Lawrence Dx/Rx/DC Orders Clinical Impression: Pain and swelling of right knee, Post-operative pain, Vasovagal near syncope Instructions: Managing Post-Op Pain at Home, ED Near-Fainting- Vagal Reaction Prescriptions: No Action diclofenac sodium 75 mg tablet,delayed release (DR/EC) 75 mg PO BID famotidine 40 mg tablet 40 mg PO QHS omeprazole 20 mg capsule,delayed release(DR/EC) 20 mg PO BID Qty: 60 5RF beclomethasone dipropionate 80 mcg/actuation HFA aerosol breath activated 1 inh inhalation Q12H 30 Days Qty: 10.6 4RF albuterol sulfate 90 mcg/actuation HFA aerosol inhaler 2 puff inhalation Q6H PRN (Reason: shortness of breath or wheezing) Qty: 6.7 3RF acetaminophen 500 MG tablet 500 mg PO Q4H PRN PRN (Reason: Pain Score 1-5/10) 0RF Primary Care Provider: Jorge Bray NP Referrals: Lamberto Wynn DO [Med Staff - Active Staff] - Keep Aly appointment Jorge Bray NP, DATA MANAGEMENT SPECIALIST-C [Primary Care Provider] - Print Language: Yoruba Disposition Disposition: Home, Self Care Discharge Date/Time: 03/28/24 12:21
--- NOTE | 2024-03-28 11:30 | RAD_ITS ---
STUDY: X-RAY - RIGHT KNEE REASON FOR EXAM: Male, 53 years old. Swelling, post op. TECHNIQUE: 4 views of the right knee. COMPARISON: None. FINDINGS: Normal visualized distal femur. Normal visualized proximal tibia and fibula. Normal proximal tibiofibular articulation. There is no demonstrated fracture. Normal medial femorotibial compartment. Normal lateral femorotibial compartment. Normal patellofemoral articulation. There is a moderate to large volume joint effusion, containing a small air bubble. There is prepatellar soft tissue swelling. RAD/Knee 4 or More Views IMPRESSION: Moderate to large right knee joint effusion, containing a small air bubble. Intra-articular air could be related to recent surgical intervention, penetrating trauma, or gas-forming infection. Prepatellar soft tissue swelling. Electronically Signed: Romario Carson MD at 11:41 EST ,
[2024-03-28 12:17] VITALS: BP 145/89; PULSE 82; RESP 14; TEMP 36.2; O2SAT 99
== END 2024-03-28 12:21 | disposition home or self-care (01) ==
PROVIDERS: Emergency Provider Emergency Medicine; PCP Nurse Practitioner Family; Visit Provider Emergency Medicine
DX: M25.561 Pain in right knee (principal); M79.89 Other specified soft tissue disorders; G89.18 Other acute postprocedural pain; R55 Syncope and collapse; K21.00 Gastro-esophageal reflux disease with esophagitis, without bleeding; Z86.718 Personal history of other venous thrombosis and embolism
CPT/HCPCS: 73564; 93971; 99282

== ENCOUNTER → 2024-07-17 | Outpatient (CLI) | payer BC, SELFPAY ==
[2024-07-17 18:37] LABS: CRP < 3.00 mg/L (0.0-3.0)
[2024-07-19 15:08] LABS: Endomysial Antibody IgA Negative (Negative); Immunoglobulin A 115 mg/dL (90-386); t-Transglutaminase IgA <2 U/mL (0-3)
== END | disposition home or self-care (01) ==
LOC: MTLAB 14:46
PROVIDERS: PCP Nurse Practitioner Family; Referring Provider Internal Medicine Gastroenterology; Visit Provider Internal Medicine Gastroenterology
DX: R10.9 Unspecified abdominal pain (principal); R19.7 Diarrhea, unspecified
CPT/HCPCS: 36415; 82784; 83516; 86140; 86255